=== PATIENT | female | born 2000 | race African-American/Black ===

== ENCOUNTER 2020-05-13 14:42 | Outpatient (REF) | payer MEDICAID, SELFPAY ==
[2020-05-14 11:07] LABS: CT PCR NOT DETECTED (Not Detect.); NG PCR NOT DETECTED (Not Detect.)
[2020-05-14 12:31] LABS: BV Int Neg Control Negative (Negative); BV Int Pos Control Positive (Positive)
== END 2020-05-13 14:43 | disposition home or self-care (01) ==
LOC: HO.LAB 14:42
PROVIDERS: PCP Internal Medicine; Visit Provider Advanced Practice Midwife
DX: R10.2 Pelvic and perineal pain (principal); Z20.2 Contact with and (suspected) exposure to infections with a predominantly sexual mode of transmission
CPT/HCPCS: 87480; 87491; 87510; 87591; 87660; 99214

== ENCOUNTER 2020-06-06 | Outpatient (REF) | payer MEDICAID, SELFPAY | END 2020-06-06 00:01 | LOC: CF | PROVIDERS: Visit Provider Advanced Practice Midwife | DX: R10.2 Pelvic and perineal pain (principal); E28.2 Polycystic ovarian syndrome | CPT/HCPCS: 99212 ==

== ENCOUNTER 2020-08-31 08:39 | Emergency (ER) | payer MEDICAID, SELFPAY ==
--- NOTE | ~2020-08-31 | US_ITS ---
EXAMINATION: FIRST TRIMESTER OB ULTRASOUND CLINICAL INFORMATION: Positive test. Epigastric and lower abdominal pain. COMPARISON: None TECHNIQUE: First trimester transabdominal OB ultrasound FINDINGS: The uterus measures 10.2 x 6.3 x 8 cm in dimension. There is an intrauterine gestational sac. [place]-rump length measures 2.9 cm suggesting gestational age of 9 weeks 6 days with estimated date of delivery of 03/30/2021. heart rate is 158 bpm. There is a yolk sac. The maternal ovaries are normal. The right ovary measures 2.9 x 1.5 x 2.8 cm and the left ovary measures 3 x 1.3 x 1.9 cm. There is no fluid in the maternal pelvis. US/US OB <= 14 weeks fetus IMPRESSION: Single viable intrauterine . From today's measurements, gestational age is estimated at 9 weeks 6 days with estimated date of delivery of 03/30/2021.
[2020-08-31 09:20] VITALS: BP 137/87; PULSE 94; RESP 18; TEMP 36.7; O2SAT 100; BMI 21.2
[2020-08-31 09:50] LABS: Glucose Urine UA NEG (NEG); Leukocyte Esterase Urine NEG (NEG); Nitrite Urine NEG (NEG); Urine Blood NEG (NEG); Urine Ketones 5 MG/DL (NEG); Urine Protein TRACE MG/DL (NEG-TRACE)
[2020-08-31 09:55] LABS: MANUAL DIFF FLAG NO
[2020-08-31 09:58] LABS: Basophils Percent Auto 0.4 % (0-2); Eosinophils Percent Auto 0.4 % (0-4); Hematocrit 39.6 % (37-47); Hemoglobin 13.8 g/dl (12.0-16.0); Lymphocytes Absolute Auto 1.9 X10*3/uL (1.2-4.9); Lymphocytes Percent Auto 38.7 % (20-40); Mean Corpuscular HGB Conc 34.8 g/dl (31.0-35.0); Mean Corpuscular Hemoglobin 31.4 pg (27.0-33.0); Mean Corpuscular Volume 90.2 fL (80-98); Mean Platelet Volume 10.3 fL (9.4-12.3); Monocytes Absolute Auto 0.2 X10*3/uL (0.1-1.2); Monocytes Percent Auto 3.2 % (2-11); Neutrophils Absolute Auto 2.8 X10*3/uL (2.0-8.3); Neutrophils Percent Auto 57.3 % (45-73); Platelet Count 199 X10*3/uL (160-400); Red Blood Count 4.39 X10*6/uL (4.20-5.50); Red Cell Distribution Width 13.8 % (11.0-16.0)
[2020-08-31 09:59] LABS: Color Urine YELLOW
[2020-08-31 10:00] LABS: Appearance Urine HAZY; UPreg QC Valid YES; Urine Pregnancy POSITIVE (NEGATIVE)
[2020-08-31 10:29] LABS: Alanine Aminotransferase 11 U/L (0-31); Albumin Level 4.1 g/dL (3.5-5.0); Alkaline Phosphatase 57 U/L (39-117); Anion Gap 10 (12-20); Aspartate Amino Transferase 14 U/L (5-31); Bilirubin Direct 0.2 mg/dL (0.0-0.5); Bilirubin Total 0.5 mg/dL (0.0-1.0); Blood Urea Nitrogen 11 mg/dL (9-16); Calcium 9.2 mg/dL (8.4-10.2); Carbon Dioxide 26 mmol/L (22-29); Chloride 105 mmol/L (96-108); Creatinine Clr Calc Pharmacy 110.7; Estimated Glomerular Filt Rate > 60; Glucose Random 86 mg/dL (60-115); Potassium 3.7 mmol/L (3.3-5.1); Sodium 137 mmol/L (135-145); Total Protein 6.9 g/dL (6.5-8.0)
[2020-08-31] MEDS: 0.9 % Sodium Chloride 1,000 ML 999 ML IVCONT (10:40)
[2020-08-31] MEDS: ondansetron HCL 4 MG/2 ML VIAL IVPUSH (10:53)
--- NOTE | 2020-08-31 12:33 | ED_ITS ---
HPI - Nausea/Vomiting/Diarrhea General Chief complaint: Abdominal Pain Stated complaint: VOMITING Time Seen by Provider: 08/31/20 09:26 Source: patient Mode of arrival: ambulatory Limitations: no limitations History of Present Illness HPI Narrative: 19-year-old female with a past medical history of PCOS, irregular menses, Hirsutism, elevated DHEA who has had 2 prior miscarriages in the past the last 1 was at 22 weeks approximately 2 years ago presenting to the ED with complaints of nausea vomiting and diffuse abdominal pain for the past month. Denies any fevers, chills, dizziness, chest pain, shortness of breath, palpitations, cough, sore throat, back pain, dysuria, vaginal discharge, hematuria, abnormal bleeding or any other symptom complaints or concerns at this time. Reports that she does not believe she is . MD elicited complaint: nausea, vomiting and abdominal pain Onset (ago): month(s) (One month worse today) Description of vomiting: food contents, watery and bilious Associated nausea: Yes Associated abdominal pain: Yes Location of pain: diffuse Pain consistency: constant Severity: moderate Quality: cramping Exacerbating factors: eating Relieving factors: none Associated symptoms: denies other symptoms Related Data Home Medications Medication Instructions Recorded Confirmed sertraline 25 mg tablet 25 mg PO DAILY 05/13/20 Previous Rx's Medication Instructions Recorded PNV #[id number] acid-[id number] 1 cap PO DAILY #30 cap 08/31/20 ondansetron HCl [Zofran] 4 mg PO Q8H PRN #20 tab 08/31/20 Allergies Allergy/AdvReac Type Severity Reaction Status Date / Time No Known Allergies Allergy Unverified 04/07/20 16:54 Review of Systems Review of Systems: Constitutional : No Weight loss, No Fever, No Chills, No Night Sweats, No Fatigue, NoMalaise ENT/Mouth: No ear pain, No sore throat, No Difficulty swallowing Cardiovascular : No Chest Pain, No SOB, No Dyspnea on Exertion, No Orthopnea, NoEdema, No Palpitations Respiratory : No Cough, No Sputum, No Wheezing, No Dyspnea Gastrointestinal : + Nausea, + Vomiting, No Diarrhea, + abdominal Pain, No Hematochezia, No Melena Genitourinary : No irregular bleeding, No Dysuria, No Urinary Frequency, No Hematuria,No Urinary Incontinence, No Urgency, No Flank Pain Musculoskeletal : No joint pain, No Myalgias, No Joint Swelling Skin : No Skin Lesions, No rash Neuro : No Weakness, No Numbness, No Paresthesias, No Loss of Consciousness, NoDizziness, No Headache Psych : No Social Issues, Heme/Lymph: No Bruising, No Bleeding,No Lymphadenopathy Endocrine : No Polyuria, No Polydipsia, No Temperature Intolerance Yes all other systems are reviewed and are negative Gastrointestinal: Gastrointestinal: Reports nausea PMFSH Past Medical History Attestation statement: The following information was validated with the patient. Medical History History of depression PCOS (polycystic ovarian syndrome) Social History Social History Alcohol intake: current Alcohol intake frequency: holidays/special occasions only Smoking Status: Never smoker Use of substances other than those prescribed or required for medical reasons: No Advance Directives: No Advance Directives Information Provided: No Sexual orientation: Straight/Heterosexual Gender identity: female Physical Exam Vital Signs: Vital Signs: Last Vital Signs Temp 98.0 F 08/31/20 09:20 Pulse 94 08/31/20 09:20 Resp 18 08/31/20 09:20 BP 137/87 08/31/20 09:20 Pulse Ox 100 08/31/20 09:20 Body Mass Index 21.2 vital signs have been reviewed as normal and appeared to be correct. Blood pressure normal. Heart rate normal. Respiration rate normal. Temperature normal. Oxygen saturation normal. Appearance: Alert. Oriented X3. No acute distress. Head: Normal external exam. Normocephalic. Eyes: PERRLA. EOMI. Conjunctiva and sclera normal. Eyelids normal. ENT: Pharynx normal. Uvula midline. Moist mucous membranes. No trismus noted. No drooling noted. No muffled voice noted. Neck: Normal inspection. Neck supple. FROM. No adenopathy. No meningeal signs. CVS: Normal heart rate and rhythm. Heart sound normal. No murmurs noted. Pulses normal throughout. Respiratory: No respiratory distress. Painless inspiration. Breath sounds normal. No wheezes/rales/rhonchi noted. Chest nontender. No accessory muscle usage noted or decreased air movement noted. Abdomen: Soft and nontender. Nondistended. No guarding. No rigidity. Bowel sounds normal in all 4 quadrants. No distention noted. No organomegaly noted. No visible injury noted. No rebound tenderness. Negative Rovsing sign. Negative obturator's sign. Negative psoas sign. Negative Hicks sign. Back: No CVA tenderness. Full range of motion noted. Skin: Skin warm and dry. Normal skin color. Normal skin turgor. No rashes/lesions/lacerations noted. Extremities: Extremities exhibit normal range of motion. Extremities nontender. Neuro: Oriented X 3. No motor deficit. No sensory deficit. Reflexes normal. Course Course Course Narrative: 19-year-old female with a past medical history of PCOS, irregular menses, Hirsutism, elevated DHEA who has had 2 prior miscarriages in the past the last 1 was at 22 weeks approximately 2 years ago presenting to the ED with complaints of nausea vomiting and diffuse abdominal pain for the past month. - on exam patient is alert and oriented x3. Not in acute distress. Vital signs are stable within normal limits. No signs of dehydration. Nontoxic. Abdomen is soft and nontender on exam. - UA revealed positive test there for serum quant ordered an appropriately elevated. All other labs are within normal limits. First trimester ultrasound revealed single viable intrauterine with es timated date of 9 weeks and 6 days with a delivery date of 03/30/2021 therefore printed out these results and given to the patient. She also had images from ultrasound of the fetus. Will DC home with Zofran is patient is tolerating p.o. fluids/solids after given Zofran. And referral to Dr. Bette STOVALL for further evaluation and treatment and to return if any new or worsening symptoms. Patient understands agrees the plan. MDM - Nausea/Vomiting/Diarrhea Medical Records Attestation: I reviewed the patient's medical records. Lab Data Attestation: I reviewed the patient's lab results. Result diagrams: 08/31/20 09:52 08/31/20 09:52 Labs: Lab Results 08/31/20 08/31/20 08/31/20 Range/Units 09:30 09:52 09:52 WBC 5.0 (4.8-10.8) X10*3/uL RBC 4.39 (4.20-5.50) X10*6/uL Hgb 13.8 (12.0-16.0) g/dl Hct 39.6 (37-47) % MCV 90.2 (80-98) fL MCH 31.4 (27.0-33.0) pg MCHC 34.8 (31.0-35.0) g/dl RDW 13.8 (11.0-16.0) % Plt Count 199 (160-400) X10*3/uL MPV 10.3 (9.4-12.3) fL Immature Gran % (Auto) 0.0 (0.0-0.4) % Neut % (Auto) 57.3 (45-73) % Lymph % (Auto) 38.7 (20-40) % Gibson % (Auto) 3.2 (2-11) % Eos % (Auto) 0.4 (0-4) % Baso % (Auto) 0.4 (0-2) % Lymph # (Auto) 1.9 (1.2-4.9) X10*3/uL Gibson # (Auto) 0.2 (0.1-1.2) X10*3/uL Eos # (Auto) 0.0 (0.0-0.4) X10*3/uL Baso # (Auto) 0.0 (0.0-0.2) X10*3/uL Abs Immat Gran (auto) 0.00 (0.00-0.03) X10*3/uL Absolute Neuts (auto) 2.8 (2.0-8.3) X10*3/uL Absolute Nucleated RBC 0.000 (0.0-0.012) X10*3/uL Nucleated RBC % (auto) 0.0 (0.0-0.2) /100WBC Hold Blue Top SEE NOTE Sodium (135-145) mmol/L Potassium (3.3-5.1) mmol/L Chloride (96-108) mmol/L Carbon Dioxide (22-29) mmol/L Anion Gap (12-20) BUN (9-16) mg/dL Creatinine (0.5-1.4) mg/dL Estim Creat Clear Calc Estimated GFR Random Glucose (60-115) mg/dL Calcium (8.4-10.2) mg/dL Magnesium (1.6-2.6) mg/dL Total Bilirubin (0.0-1.0) mg/dL Direct Bilirubin (0.0-0.5) mg/dL AST (5-31) U/L ALT (0-31) U/L Alkaline Phosphatase (39-117) U/L Total Protein (6.5-8.0) g/dL Albumin (3.5-5.0) g/dL Beta HCG, Quant mIU/mL Urine Color YELLOW Urine Appearance HAZY Urine pH 7.0 (5.0-8.0) Ur Specific Grandy 1.020 (1.005-1.025) Urine Protein TRACE (NEG-TRACE) MG/DL Urine Glucose (UA) NEG (NEG) MG/DL Urine Ketones 5 (NEG) MG/DL Urine Blood NEG (NEG) Urine Nitrite NEG (NEG) Ur Leukocyte Esterase NEG (NEG) Urine Test POSITIVE H (NEGATIVE) 08/31/20 Range/Units 09:52 WBC (4.8-10.8) X10*3/uL RBC (4.20-5.50) X10*6/uL Hgb (12.0-16.0) g/dl Hct (37-47) % MCV (80-98) fL MCH (27.0-33.0) pg MCHC (31.0-35.0) g/dl RDW (11.0-16.0) % Plt Count (160-400) X10*3/uL MPV (9.4-12.3) fL Immature Gran % (Auto) (0.0-0.4) % Neut % (Auto) (45-73) % Lymph % (Auto) (20-40) % Gibson % (Auto) (2-11) % Eos % (Auto) (0-4) % Baso % (Auto) (0-2) % Lymph # (Auto) (1.2-4.9) X10*3/uL Gibson # (Auto) (0.1-1.2) X10*3/uL Eos # (Auto) (0.0-0.4) X10*3/uL Baso # (Auto) (0.0-0.2) X10*3/uL Abs Immat Gran (auto) (0.00-0.03) X10*3/uL Absolute Neuts (auto) (2.0-8.3) X10*3/uL Absolute Nucleated RBC (0.0-0.012) X10*3/uL Nucleated RBC % (auto) (0.0-0.2) /100WBC Hold Blue Top Sodium 137 (135-145) mmol/L Potassium 3.7 (3.3-5.1) mmol/L Chloride 105 (96-108) mmol/L Carbon Dioxide 26 (22-29) mmol/L Anion Gap 10 L (12-20) BUN 11 (9-16) mg/dL Creatinine 0.70 (0.5-1.4) mg/dL Estim Creat Clear Calc 110.7 Estimated GFR > 60 Random Glucose 86 (60-115) mg/dL Calcium 9.2 (8.4-10.2) mg/dL Magnesium 2.0 (1.6-2.6) mg/dL Total Bilirubin 0.5 (0.0-1.0) mg/dL Direct Bilirubin 0.2 (0.0-0.5) mg/dL AST 14 (5-31) U/L ALT 11 (0-31) U/L Alkaline Phosphatase 57 (39-117) U/L Total Protein 6.9 (6.5-8.0) g/dL Albumin 4.1 (3.5-5.0) g/dL Beta HCG, Quant 322448 mIU/mL Urine Color Urine Appearance Urine pH (5.0-8.0) Ur Specific Grandy (1.005-1.025) Urine Protein (NEG-TRACE) MG/DL Urine Glucose (UA) (NEG) MG/DL Urine Ketones (NEG) MG/DL Urine Blood (NEG) Urine Nitrite (NEG) Ur Leukocyte Esterase (NEG) Urine Test (NEGATIVE) Imaging Data First trimester ultrasound: Attestation: I personally reviewed and interpreted this imaging study as follows: Radiologist's impression: FINDINGS: The uterus measures 10.2 x 6.3 x 8 cm in dimension. There is an intrauterine gestational sac. [place]-rump length measures 2.9 cm suggesting gestational age of 9 weeks 6 days with estimated date of delivery of 03/30/2021. heart rate is 158 bpm. There is a yolk sac. The maternal ovaries are normal. The right ovary measures 2.9 x 1.5 x 2.8 cm and the left ovary measures 3 x 1.3 x 1.9 cm. There is no fluid in the maternal pelvis. US/US OB <= 14 weeks fetus IMPRESSION: Single viable intrauterine . From today's measurements, gestational age is estimated at 9 weeks 6 days with estimated date of delivery of 03/30/2021. Discharge Plan Discharge Clinical Impression: Positive test, 9 weeks gestation of , Nausea and vomiting during Patient Disposition: Home, Self-Care Instructions: Nausea and Vomiting in (ED), First Trimester (ED), at 7 to 10 Weeks (ED) Prescriptions: New ondansetron HCl [Zofran] 4 mg tablet 4 mg PO Q8H PRN (Reason: nausea and vomiting) Qty: 20 RF: 0 PNV #[id number] acid-omega3 30 mg iron-10 mg iron-1 mg capsule 1 cap PO DAILY Qty: 30 RF: 0 No Action sertraline 25 mg tablet 25 mg PO DAILY RF: 0 Referrals: Ritesh Amos MD [Physician] - 2 days (Call today or tomorrow to make a follow- up appointment) Interventions: ED Discharge Assessment Last Done: 08/31/20 12:54 Discharge Date/Time: 08/31/20 12:55 Print Language: Citizen Of [place]
== END 2020-08-31 12:55 | disposition home or self-care (01) ==
PROVIDERS: Physician Assistant Medical; Emergency Provider Emergency Medicine Emergency Medical Services; PCP Internal Medicine
DX: O26.891 Other specified pregnancy related conditions, first trimester (principal); R11.2 Nausea with vomiting, unspecified; Z3A.09 9 weeks gestation of pregnancy
CPT/HCPCS: 36415; 76801; 80048; 80076; 81003; 81025; 83735; 84702; 85025; 96361; 96374; 99284; J2405

== ENCOUNTER 2020-09-09 18:39 | Emergency (ER) | payer MEDICAID, SELFPAY ==
[2020-09-09 20:53] VITALS: BP 118/81; PULSE 93; RESP 18; TEMP 37.2; O2SAT 100
== END 2020-09-09 23:06 | disposition left against medical advice (07) ==
PROVIDERS: Emergency Provider Emergency Medicine; PCP Internal Medicine
DX: O26.91 Pregnancy related conditions, unspecified, first trimester (principal); Z3A.11 11 weeks gestation of pregnancy
CPT/HCPCS: 99281; 99282

== ENCOUNTER → 2020-09-20 14:17 | Outpatient (BNVA) | payer MEDICAID, SELFPAY | PROVIDERS: PCP Internal Medicine; Visit Provider Advanced Practice Midwife | CPT/HCPCS: 99212 ==

== ENCOUNTER 2020-09-23 08:47 | Outpatient (REF) | payer MEDICAID, SELFPAY ==
--- NOTE | ~2020-09-23 | US_ITS ---
EXAMINATION: OBSTETRICAL ULTRASOUND, FIRST TRIMESTER HISTORY: 19-year-old at 13.1 weeks of gestation NT screening COMPARISON: 08/31/2020 TECHNIQUE: Real time transabdominal imaging with color and M-mode Doppler. FINDINGS: A single, live IUP CRL of 71.3 mm c/w 13.3wks is noted. Heart Rate: 160 beats per minute. Normal yolk sac seen. NT was 1.67.mm. NB Present The embryo appears sonographically wnl for this GA. Both maternal ovaries are seen and appear normal. GESTATIONAL AGE: 1. Established GA: 13.1 wks 2. GA from [facility]: 13.3 wks ESTIMATED DATE OF DELIVERY: 1. Established MIL[facility]IA: 03/30/2021 2. MILVIA from [facility]: 03/28/2021 US/US OB 1T nuc measure IMPRESSION: A single live IUP Size equals dates NT of 1.67 mm MFM Consultation: I reviewed the ultrasound findings along with significance of NT measurement. The NT of less than 3mm is generally reassuring. However, the sensitivity for T21 detection is only 60%. I reviewed the availability of serum aneuploidy screening which includes cell-free DNA and placental protein based tests. I discussed the sensitivity, false-positive rate, and other limitations associated with each test. I also reviewed the availability of invasive diagnostic tests that are associated small but definite risk of miscarriage. We also reviewed the differences between screening tests and diagnostic tests. After our discussion, she opted for the First trimester screening that is based on cell-free DNA or non-invasive testing (NIPT). The result will be faxed to your office in approximately 7 days. A follow up at 18 weeks for survey has been scheduled. Thank you very much for this referral. Total time 20 minutes. The time spent was devoted to counseling the patient about the disease and diagnosis, coordinating care including reviewing her records, pertinent lab data and studies, as well as discussing diagnostic evaluation and workup, plan therapeutic interventions and future disposition of care. This includes any additional research needed to obtain further information in formulating the plan of care of this patient. This note was generated with a voice recognition program. Please excuse any errors which may have been overlooked during my review of this note. Sometimes these errors may affect the content or meaning of a given sentence.
== END 2020-09-23 08:48 | disposition home or self-care (01) ==
LOC: HO.US 08:47
PROVIDERS: PCP Internal Medicine; Visit Provider Advanced Practice Midwife
DX: Z34.91 Encounter for supervision of normal pregnancy, unspecified, first trimester (principal); Z36.82 Encounter for antenatal screening for nuchal translucency
CPT/HCPCS: 76813

== ENCOUNTER 2020-09-29 11:06 | Outpatient (REF) | payer MEDICAID, SELFPAY ==
[2020-09-29 13:04] LABS: MANUAL DIFF FLAG NO
[2020-09-29 13:09] LABS: Basophils Percent Auto 0.4 % (0-2); Eosinophils Percent Auto 0.6 % (0-4); Hematocrit 37.2 % (37-47); Hemoglobin 12.9 g/dl (12.0-16.0); Imm Gran Abs Auto 0.01 X10*3/uL (0.00-0.03); Imm Gran Pct Auto 0.1 % (0.0-0.4); Lymphocytes Absolute Auto 2.4 X10*3/uL (1.2-4.9); Lymphocytes Percent Auto 34.6 % (20-40); Mean Corpuscular HGB Conc 34.7 g/dl (31.0-35.0); Mean Corpuscular Hemoglobin 31.5 pg (27.0-33.0); Mean Platelet Volume 10.6 fL (9.4-12.3); Monocytes Absolute Auto 0.3 X10*3/uL (0.1-1.2); Monocytes Percent Auto 3.6 % (2-11); Neutrophils Absolute Auto 4.2 X10*3/uL (2.0-8.3); Neutrophils Percent Auto 60.7 % (45-73); Platelet Count 220 X10*3/uL (160-400); Red Blood Count 4.09 X10*6/uL (4.20-5.50); Red Cell Distribution Width 13.6 % (11.0-16.0)
[2020-09-29 19:25] LABS: Amphetamine Screen Urine Not Detected (Not Detect); Barbiturates, Urine Not Detected (Not Detect); Benzodiazepines Screen Urine Not Detected (Not Detect); Cannabinoid Screen Urine POSITIVE (Not Detect); Cocaine Screen Urine Not Detected (Not Detect); Opiate Screen Urine Not Detected (Not Detect); Phencyclidine Screen Urine Not Detected (Not Detect)
[2020-09-30 04:22] LABS: HIV AB/AG Nonreactive (Nonreactive); HIV Num 1 0.07 S/CO (0.00-0.99)
[2020-09-30 04:39] LABS: HBsAGNum1 0.16 S/CO (0.00-0.99); Hepatitis B Surface Antigen Negative (Negative); ~HepC Num1 0.07 S/CO (0.00-0.79); ~Hepatitis C Antibody Nonreactive (Nonreactive)
[2020-09-30 08:50] LABS: CT PCR NOT DETECTED (Not Detect.); NG PCR NOT DETECTED (Not Detect.)
[2020-09-30 09:32] LABS: Varicella IgG Antibody <135.00 index
[2020-09-30 10:22] LABS: Rubella IgG Antibody 1.66 Index
[2020-09-30 16:06] LABS: Syphilis Screen Nonreactive (Nonreactive)
== END 2020-09-29 11:07 | disposition home or self-care (01) ==
LOC: HO.LAB 11:06
PROVIDERS: Advanced Practice Midwife; PCP Internal Medicine; Visit Provider Advanced Practice Midwife
DX: O09.292 Supervision of pregnancy with other poor reproductive or obstetric history, second trimester (principal); O99.282 Endocrine, nutritional and metabolic diseases complicating pregnancy, second trimester; E28.2 Polycystic ovarian syndrome; Z87.891 Personal history of nicotine dependence
CPT/HCPCS: 80307; 85025; 86762; 86780; 86787; 86803; 86850; 86900; 86901; 87086; 87340; 87389; 87491; 87591; 99212

== ENCOUNTER → 2020-10-27 10:36 | Outpatient (BNVA) | payer MEDICAID, SELFPAY | PROVIDERS: PCP Internal Medicine; Visit Provider Advanced Practice Midwife | DX: Z34.92 Encounter for supervision of normal pregnancy, unspecified, second trimester (principal); Z3A.18 18 weeks gestation of pregnancy | CPT/HCPCS: 81003; 99212 ==

== ENCOUNTER 2020-11-04 11:47 | Outpatient (REF) | payer MEDICAID, SELFPAY ==
--- NOTE | ~2020-11-04 | US_ITS ---
EXAMINATION: US OBSTETRICAL CLINICAL INFORMATION: 20-year-old at 19.1 weeks of gestation Screening anomaly COMPARISON: 09/23/2020 TECHNIQUE: Real-time transabdominal ultrasound was performed using C1-5 megahertz transducer. FINDINGS: A single, active, fetus is seen in cephalic presentation. The placenta is left lateral without previa, and the amniotic fluid volume is wnl. MEASUREMENTS: 1. Biparietal Diameter: 4.4 cm; 19.2 wks 2. Occipital Frontal Diameter: 5.7 cm 3. Head Circumference: 16.2 cm; 19.0 wks 4. Abdominal Circumference: 13.7 cm; 19.1 wks 5. Femur Length: 2.8 cm; 18.4 wks 6. Humerus Length: 2.7 cm; 18.5 wks 7. Tibia Length: 2.5 cm; 18.6 wks 8. Ulna Length: 2.5 cm; 19.0 wks 9. Lateral ventricle: 0.74 cm 10. Cerebellum: 1.91 cm; 19.5 wks 11. Cisterna Magna: 0.33 cm 12. Nuchal Fold: 3.8 mm 13. Heart Rate: 136 beats per minute Rt ovary: normal Lt ovary: Unable to visualize Cervical length 3.9 cm on T/A. GESTATIONAL AGE: 1. Established GA: 19.1 wks 2. GA from [facility]: 19.0 wks ESTIMATED DATE OF DELIVERY: 1. Established MILVIA: 03/30/2021 2. MILVIA from [facility]: 03/31/2021 ANATOMY: The visualized anatomy includes but not limited to: 1. Cranium: Normal 2. Intracranial anatomy: cavum septum pellucidi, lateral ventricles, choroid plexus, cerebellum, posterior fossa, third and fourth ventricles. 3. face: orbits, lip/palate, profile, nasal bone 4. Heart: four-chamber view of the heart, ventricular septum, foramen ovale, pulmonary vein, left and right outflow tracts, three-vessel view, 3 vessel trachea view, aortic and ductal arches, situs.. 5. Diaphragm: Normal 6. Abdominal wall: Normal 7. Cord Insertion: Normal 8. Spine: Cervical, thoracic, lumbar, sacral. 9. Stomach: Normal size and shape 10. Right Kidney: Normal 11. Left Kidney: Normal 12. 3 vessel cord: Normal 13. Upper extremity: Open hands, fifth digit. 14. Lower extremity: Tibia, fibula, bilateral feet. 15. Bladder: Normal 16. Genitalia: Male, patient not aware US/US OB /maternal detail IMPRESSION: 1. Single, living, intrauterine with appropriate biometry. 2. Normal survey DISCUSSION: I reviewed today's ultrasound findings. We discussed the limitations of ultrasound in diagnosing aneuploidy and other congenital abnormalities. I reviewed the differences between screening test and diagnostic test. Amniocentesis was discussed and declined. She was informed that the baseline incidence of congenital abnormalities is approximately 3-5%. Not all these conditions are diagnosable in utero. RECOMMENDATIONS: Follow-up when necessary. Thank you for allowing me to participate in her care. Total time 20 minutes. The time spent was devoted to counseling the patient about the disease and diagnosis, coordinating care including reviewing her records, pertinent lab data and studies, as well as discussing diagnostic evaluation and workup, plan therapeutic interventions and future disposition of care. This includes any additional research needed to obtain further information in formulating the plan of care of this patient. This note was generated with a voice recognition program. Please excuse any errors which may have been overlooked during my review of this note. Sometimes these errors may affect the content or meaning of a given sentence.
== END 2020-11-04 11:48 | disposition home or self-care (01) ==
LOC: HO.US 11:47
PROVIDERS: Visit Provider Advanced Practice Midwife
DX: Z36.3 Encounter for antenatal screening for malformations (principal); O09.292 Supervision of pregnancy with other poor reproductive or obstetric history, second trimester; O26.892 Other specified pregnancy related conditions, second trimester; E28.2 Polycystic ovarian syndrome
CPT/HCPCS: 76811

== ENCOUNTER → 2020-11-24 08:12 | Outpatient (BNVA) | payer MEDICAID, SELFPAY | PROVIDERS: PCP Internal Medicine; Visit Provider Advanced Practice Midwife | DX: O36.8390 Maternal care for abnormalities of the fetal heart rate or rhythm, unspecified trimester, not applicable or unspecified (principal); Z3A.22 22 weeks gestation of pregnancy | CPT/HCPCS: 81003; 99212 ==

== ENCOUNTER 2020-11-25 09:11 | Outpatient (REF) | payer MEDICAID, SELFPAY ==
--- NOTE | ~2020-11-25 | US_ITS ---
EXAMINATION: OBSTETRICAL ULTRASOUND, Follow up HISTORY: 20-year-old at the 22.1 weeks of gestation Size date discrepancy arrhythmia History of stillbirth COMPARISON: 11/04/2020 TECHNIQUE: Real time transabdominal imaging with color and M-mode Doppler. PRESENTATION: Vertex PLACENTA LOCATION: Anterior, lateral without previa AMNIOTIC FLUID: Normal MEASUREMENTS: 1. Biparietal Diameter: 5.6 cm; 23.2 wks 2. Head Circumference: 21.1 cm; 23.1 wks 3. Abdominal Circumference: 17.3 cm; 22.2 wks 4. Femur Length: 3.8 cm; 22.1 wks 5. Heart Rate: 143 beats per minute WEIGHT: EFW: 491 grams (1 lbs 1 oz) -- 51 %. GESTATIONAL AGE: 1. Established GA: 22.1 wks 2. GA from [facility]: 22.5 wks ESTIMATED DATE OF DELIVERY: 1. Established MILVIA: 03/30/2021 2. MILVIA from [facility]: 03/26/2021 Four-chamber view of the heart is within normal limits. No evidence of ascites, pleural effusion or pericardial effusion. M-mode evaluation demonstrated premature atrial contractions. US/US OB follow up IMPRESSION: 1. A single active fetus is seen in vertex presentation 2. Size equals dates 3. Premature atrial contraction 4. No evidence of hydrops I reassured the patient that the premature atrial contractions is a common, benign arrhythmia and will resolve spontaneously. There is rarely associated with structural cardiac defect or functional abnormality. Majority of the cases will resolve before delivery. She denies a excessive caffeine intake or medications other than vitamins. No further follow-up is been scheduled at this time. Thank you very much for this referral. Total time 20 minutes. The time spent was devoted to counseling the patient about the disease and diagnosis, coordinating care including reviewing her records, pertinent lab data and studies, as well as discussing diagnostic evaluation and workup, plan therapeutic interventions and future disposition of care. This includes any additional research needed to obtain further information in formulating the plan of care of this patient. This note was generated with a voice recognition program. Please excuse any errors which may have been overlooked during my review of this note. Sometimes these errors may affect the content or meaning of a given sentence.
== END 2020-11-25 09:12 | disposition home or self-care (01) ==
LOC: HO.US 09:11
PROVIDERS: Visit Provider Advanced Practice Midwife
DX: O09.292 Supervision of pregnancy with other poor reproductive or obstetric history, second trimester (principal); O36.8390 Maternal care for abnormalities of the fetal heart rate or rhythm, unspecified trimester, not applicable or unspecified; O26.842 Uterine size-date discrepancy, second trimester; Z3A.22 22 weeks gestation of pregnancy
CPT/HCPCS: 76816

== ENCOUNTER → 2020-12-22 08:33 | Outpatient (BNVA) | payer MEDICAID, SELFPAY | PROVIDERS: PCP Internal Medicine; Visit Provider Advanced Practice Midwife | DX: Z34.92 Encounter for supervision of normal pregnancy, unspecified, second trimester (principal); Z3A.26 26 weeks gestation of pregnancy | CPT/HCPCS: 81003; 99212 ==

== ENCOUNTER 2021-01-19 09:09 | Outpatient (REF) | payer MEDICAID, SELFPAY ==
[2021-01-19 12:23] LABS: Hematocrit 32.2 % (37-47); Hemoglobin 11.1 g/dl (12.0-16.0); Mean Corpuscular HGB Conc 34.5 g/dl (31.0-35.0); Mean Corpuscular Hemoglobin 32.6 pg (27.0-33.0); Mean Corpuscular Volume 94.4 fL (80-98); Mean Platelet Volume 10.1 fL (9.4-12.3); Platelet Count 187 X10*3/uL (160-400); Red Blood Count 3.41 X10*6/uL (4.20-5.50); Red Cell Distribution Width 12.7 % (11.0-16.0); White Blood Count 7.1 X10*3/uL (4.8-10.8)
[2021-01-19 12:42] LABS: Glucose 1 Hour PP 50gm Dose 116 mg/dL (60-140)
[2021-01-20 03:59] LABS: Syphilis Screen Nonreactive (Nonreactive)
== END 2021-01-19 09:10 | disposition home or self-care (01) ==
LOC: HO.LAB 09:09
PROVIDERS: PCP Internal Medicine; Visit Provider Advanced Practice Midwife
DX: O99.333 Smoking (tobacco) complicating pregnancy, third trimester (principal); O26.893 Other specified pregnancy related conditions, third trimester; O36.5930 Maternal care for other known or suspected poor fetal growth, third trimester, not applicable or unspecified; F17.210 Nicotine dependence, cigarettes, uncomplicated; M54.9 Dorsalgia, unspecified; Z3A.30 30 weeks gestation of pregnancy; Z23 Encounter for immunization; Z13.31 Encounter for screening for depression; Z20.2 Contact with and (suspected) exposure to infections with a predominantly sexual mode of transmission
CPT/HCPCS: 36415; 81003; 85027; 86780; 90471; 90715; 99212

== ENCOUNTER 2021-01-27 10:38 | Outpatient (REF) | payer MEDICAID, SELFPAY ==
--- NOTE | ~2021-01-27 | US_ITS ---
EXAMINATION: OBSTETRICAL ULTRASOUND, Follow up HISTORY: 20-year-old at 31.1 weeks of gestation Size date discrepancy History of stillbirth COMPARISON: 11/25/2020 TECHNIQUE: Real time transabdominal imaging with color and M-mode Doppler. PRESENTATION: Vertex PLACENTA LOCATION: Left lateral, without previa AMNIOTIC FLUID: SAIDA 15.5 cm MEASUREMENTS: 1. Biparietal Diameter: 8.0 cm; 32.2 wks 2. Head Circumference: 30.4 cm; 33.6 wks 3. Abdominal Circumference: 26.1 cm; 30.2 wks 4. Femur Length: 5.7 cm; 30.0 wks 5. Heart Rate: 133 beats per minute WEIGHT: EFW: 1611 grams (3 lbs 9 oz) -- 23 %. BIOPHYSICAL PROFILE: Motion: 2 Tone: 2 Breathin Amniotic Fluid: 2 Total score: 8/8 GESTATIONAL AGE: 1. Established GA: 31.1 wks 2. GA from A: 31.5 wks ESTIMATED DATE OF DELIVERY: 1. Established MILVIA: 03/30/2021 2. MILVIA from [facility]: 03/26/2021 US/US OB follow up IMPRESSION: 1. A single active fetus is in vertex presentation 2. Size equals dates 3. Reassuring biophysical profile Thank you very much for this referral. This note was generated with a voice recognition program. Please excuse any errors which may have been overlooked during my review of this note. Sometimes these errors may affect the content or meaning of a given sentence.
== END 2021-01-27 10:39 | disposition home or self-care (01) ==
LOC: HO.US 10:38
PROVIDERS: PCP Internal Medicine; Visit Provider Advanced Practice Midwife
DX: O36.5930 Maternal care for other known or suspected poor fetal growth, third trimester, not applicable or unspecified (principal)
CPT/HCPCS: 76816

== ENCOUNTER → 2021-02-03 09:01 | Outpatient (BNVA) | payer MEDICAID, SELFPAY | PROVIDERS: Visit Provider Advanced Practice Midwife | DX: Z34.93 Encounter for supervision of normal pregnancy, unspecified, third trimester (principal); Z3A.32 32 weeks gestation of pregnancy | CPT/HCPCS: 81003; 99212 ==

== ENCOUNTER 2021-06-12 07:28 | Emergency (ER) | payer MEDICAID, SELFPAY ==
--- NOTE | ~2021-06-12 | XR_ITS ---
EXAMINATION: XR CHEST CLINICAL INFORMATION: Chest and abdominal pain COMPARISON: None TECHNIQUE: 2 views of the chest were obtained. FINDINGS: The cardiac and mediastinal contours are normal. The lungs are clear. There is no pleural effusion or pneumothorax. There is mild curvature of the lower thoracic and upper lumbar spine to the left. Bony structures are otherwise unremarkable. XR/XR chest 2V IMPRESSION: No evidence for acute disease in the chest.
[2021-06-12 08:03] VITALS: BP 131/92; PULSE 94; RESP 16; TEMP 36.8; O2SAT 100; BMI 24.5
[2021-06-12 08:11] LABS: Appearance Urine HAZY; Color Urine YELLOW; Glucose Urine UA NEG (NEG); Leukocyte Esterase Urine TRACE (NEG); Nitrite Urine NEG (NEG); Specific Gravity - Urine 1.015 (1.005-1.025); UACC Culture Trigger YES; Urine Blood NEG (NEG); Urine Ketones NEG (NEG); Urine Protein NEG (NEG-TRACE)
[2021-06-12 08:12] LABS: Urine Pregnancy NEGATIVE (NEGATIVE)
[2021-06-12 08:13] LABS: UPreg QC Valid YES
[2021-06-12 08:26] LABS: Bacteria Urine TRACE /LPF; RBC Urine 0-2 /HPF (0); Squamous Epithelial Cell Urine 3+ /LPF; UACC CULT YES
--- NOTE | 2021-06-12 08:28 | ED_ITS ---
HPI - Abdominal Pain General Chief Complaint: Abdominal Pain Stated Complaint: chest pain/abd pain Time Seen by Provider: 06/12/21 08:28 Source: patient History of Present Illness HPI narrative: upper abdominal pain going into the chest. 2 months uncomplicated vaginal delivery. since the patient has had a lot of chest and abdominal pain. MD elicited complaint: abdominal pain Onset (ago): month(s) Pain Consistency: intermittent Location: chest and epigastric Exacerbating factors: other (lying down and sitting up) Related Data Previous Rx's Medication Instructions Recorded ondansetron HCl 4 mg tablet 4 mg PO Q8H PRN #20 tab 08/31/20 (Zofran) vitamin#30 30 mg iron-10 1 cap PO DAILY #30 cap 08/31/20 mg iron-folic acid 1 mg-omg3 capsule ferrous sulfate 325 mg (65 mg 325 mg PO DAILY #30 tab 01/19/21 iron) tablet pantoprazole 40 mg tablet,delayed 40 mg PO DAILY #20 tab 06/12/21 release (Protonix) Allergies Allergy/AdvReac Type Severity Reaction Status Date / Time No Known Allergies Allergy Verified 02/03/21 09:47 Review of Systems Constitutional: Reports no additional constitutional complaints Eyes: Reports no additional eye complaints Denies dizziness Cardiovascular: Reports no additional cardiovascular complaints Respiratory: Reports as per HPI Gastrointestinal: Reports no additional gastrointestinal complaints Genitourinary: Reports no additional female genitourinary complaints Musculoskeletal: Reports no additional musculoskeletal complaints Skin/Breast: Denies rash Reports system reviewed and no additional complaints, except as documented, D enies dizziness and Denies Sensory deficit (Neuro) Psychiatric: Denies anxiety Physical Exam Vital Signs: Vital Signs: Last Vital Signs Temp 98.3 F 06/12/21 08:03 Pulse 94 06/12/21 08:03 Resp 16 06/12/21 08:03 BP 131/92 H 06/12/21 08:03 Pulse Ox 100 06/12/21 08:03 Body Mass Index 24.5 Const: General: healthy appearing Nutritional Appearance: average body habitus Orientation/consciousness: oriented to person and patient oriented x3 Limitations: no limitations HENMT: Head: Yes normal to inspection Ears: external ears normal General nose exam: Normal external nose present Mouth: Normal oral and palatal mucosa present and oropharynx normal Throat: Yes posterior oropharynx normal Eyes: General: appearance normal, both eyes and all related structures Neck: Other: supple Neck: Yes normal visual inspection Chest: Chest palpation & inspection: normal inspection of the chest Resp: Auscultation: clear to auscultation bilaterally Cardio: Jugular venous distension: no JVD Rate: regular rate Rhythm: regular rhythm Heart sounds: S1 normal heart sound present and S2 normal heart sound present GI: Inspection: Yes normal to inspection Palpation (GI): Soft to palpation, nontender and No hepatosplenomegaly present Auscultation: normal bowel sounds : General: Yes no CVA tenderness Back/Spine/Pelvis: Back: no CVA tenderness Skin: General skin exam: no rashes or lesions noted Neuro: General: oriented to person and patient oriented x3 Cranial nerves: Yes CN's II-XII intact bilaterally Motor exam (neuro): 5/5 motor strength present throughout Sensory Exam: No Sensory deficit (Neuro) Extrem: General: Yes normal to inspection Psych: Appearance: grossly normal Course Reevaluation(s) Reevaluation #1: Physical exam relatively normal, labs negative, LFTs normal, UA and Upreg negative will start protonix for dyspepsia Time: 10:26 MDM - Abdominal Pain Lab Data Result diagrams: 06/12/21 09:09 06/12/21 09:09 Labs: Lab Results 06/12/21 06/12/21 06/12/21 Range/Units 08:01 08:01 09:09 WBC 3.6 L (4.8-10.8) X10*3/uL RBC 4.21 (4.20-5.50) X10*6/uL Hgb 13.1 (12.0-16.0) g/dl Hct 38.7 (37.0-47.0) % MCV 91.9 (80.0-98.0) fL MCH 31.1 (27.0-33.0) pg MCHC 33.9 (31.0-35.0) g/dl RDW 12.6 (11.0-16.0) % Plt Count 186 (160-400) X10*3/uL MPV 10.8 (9.4-12.3) fL Immature Gran % (Auto) 0.0 (0.0-0.4) % Neut % (Auto) 35.3 L (45-73) % Lymph % (Auto) 56.6 H (20-40) % [place] % (Auto) 6.0 (2-11) % Eos % (Auto) 1.6 (0-4) % Baso % (Auto) 0.5 (0-2) % Lymph # (Auto) 2.1 (1.2-4.9) X10*3/uL [place] # (Auto) 0.2 (0.1-1.2) X10*3/uL Eos # (Auto) 0.1 (0.0-0.4) X10*3/uL Baso # (Auto) 0.0 (0.0-0.2) X10*3/uL Abs Immat Gran (auto) 0.00 (0.00-0.03) X10*3/uL Absolute Neuts (auto) 1.3 L (2.0-8.3) x10*3/uL Absolute Nucleated RBC 0.000 (0.0-0.012) X10*3/uL Nucleated RBC % (auto) 0.0 (0.0-0.2) /100WBC Sodium (135-145) mmol/L Potassium (3.3-5.1) mmol/L Chloride (96-108) mmol/L Carbon Dioxide (22-29) mmol/L Anion Gap (12-20) BUN (9-16) mg/dL Creatinine (0.5-1.4) mg/dL Estim Creat Clear Calc Estimated GFR Random Glucose (60-115) mg/dL Calcium (8.4-10.2) mg/dL Total Bilirubin (0.0-1.0) mg/dL Direct Bilirubin (0.0-0.5) mg/dL AST (5-31) U/L ALT (0-31) U/L Alkaline Phosphatase (39-117) U/L Total Protein (6.5-8.0) g/dL Albumin (3.5-5.0) g/dL Lipase (8-78) U/L Urine Color YELLOW Urine Appearance HAZY Urine pH 6.0 (5.0-8.0) Ur Specific [place] 1.015 (1.005-1.025) Urine Protein NEG (NEG-TRACE) MG/DL Urine Glucose (UA) NEG (NEG) MG/DL Urine Ketones NEG (NEG) MG/DL Urine Blood NEG (NEG) Urine Nitrite NEG (NEG) Ur Leukocyte Esterase TRACE H (NEG) Urine RBC 0-2 (0) /HPF Urine WBC 1-4 (0-4) /HPF Ur Squamous Epith Cells 3+ /LPF Urine Bacteria TRACE /LPF Urine Test NEGATIVE (NEGATIVE) 06/12/21 Range/Units 09:09 WBC (4.8-10.8) X10*3/uL RBC (4.20-5.50) X10*6/uL Hgb (12.0-16.0) g/dl Hct (37.0-47.0) % MCV (80.0-98.0) fL MCH (27.0-33.0) pg MCHC (31.0-35.0) g/dl RDW (11.0-16.0) % Plt Count (160-400) X10*3/uL MPV (9.4-12.3) fL Immature Gran % (Auto) (0.0-0.4) % Neut % (Auto) (45-73) % Lymph % (Auto) (20-40) % [place] % (Auto) (2-11) % Eos % (Auto) (0-4) % Baso % (Auto) (0-2) % Lymph # (Auto) (1.2-4.9) X10*3/uL [place] # (Auto) (0.1-1.2) X10*3/uL Eos # (Auto) (0.0-0.4) X10*3/uL Baso # (Auto) (0.0-0.2) X10*3/uL Abs Immat Gran (auto) (0.00-0.03) X10*3/uL Absolute Neuts (auto) (2.0-8.3) x10*3/uL Absolute Nucleated RBC (0.0-0.012) X10*3/uL Nucleated RBC % (auto) (0.0-0.2) /100WBC Sodium 139 (135-145) mmol/L Potassium 4.4 (3.3-5.1) mmol/L Chloride 107 (96-108) mmol/L Carbon Dioxide 26 (22-29) mmol/L Anion Gap 10 L (12-20) BUN 12 (9-16) mg/dL Creatinine 0.84 (0.5-1.4) mg/dL Estim Creat Clear Calc 91.5 Estimated GFR > 60 Random Glucose 87 (60-115) mg/dL Calcium 9.7 (8.4-10.2) mg/dL Total Bilirubin 0.6 (0.0-1.0) mg/dL Direct Bilirubin 0.2 (0.0-0.5) mg/dL AST 31 D (5-31) U/L ALT 38 H (0-31) U/L Alkaline Phosphatase 76 D (39-117) U/L Total Protein 6.6 (6.5-8.0) g/dL Albumin 4.1 (3.5-5.0) g/dL Lipase 27 (8-78) U/L Urine Color Urine Appearance Urine pH (5.0-8.0) Ur Specific [place] (1.005-1.025) Urine Protein (NEG-TRACE) MG/DL Urine Glucose (UA) (NEG) MG/DL Urine Ketones (NEG) MG/DL Urine Blood (NEG) Urine Nitrite (NEG) Ur Leukocyte Esterase (NEG) Urine RBC (0) /HPF Urine WBC (0-4) /HPF Ur Squamous Epith Cells /LPF Urine Bacteria /LPF Urine Test (NEGATIVE) Discharge Plan Discharge Clinical Impression: Gastritis Qualifiers: Gastritis type: unspecified gastritis Chronicity: unspecified Gastritis bleeding: without bleeding Qualified Code(s): K29.70 - Gastritis, unspecified, without bleeding Patient Disposition: Home, Self-Care Instructions: Gastritis (ED) Prescriptions: New pantoprazole [Protonix] 40 mg tablet,delayed release (DR/EC) 40 mg PO DAILY Qty: 20 RF: 0 No Action ferrous sulfate 325 mg (65 mg iron) tablet 325 mg PO DAILY Qty: 30 RF: 5 ondansetron HCl [Zofran] 4 mg tablet 4 mg PO Q8H PRN (Reason: nausea and vomiting) Qty: 20 RF: 0 PNV #[id number] 30 mg iron-10 mg iron-1 mg capsule 1 cap PO DAILY Qty: 30 RF: 0 Referrals: Lacie Gimenez MD [Primary Care Provider] - 1 week [facility] Past Medical History Medical History History of depression History of stillbirth in currently patient PCOS (polycystic ovarian syndrome) Social History Social History Household Members: Family Alcohol intake: current Alcohol intake frequency: holidays/special occasions only Cigarettes Per Day: 1 Years Smoked: 1 Trauma History: no Advance Directives: No Advance Directives Information Provided: No Sexual orientation: Straight/Heterosexual Gender identity: Female
[2021-06-12] MEDS: Famotidine 20 MG TABLET PO (09:06)
[2021-06-12 09:15] LABS: MANUAL DIFF FLAG NO
[2021-06-12 09:18] LABS: Basophils Percent Auto 0.5 % (0-2); Eosinophils Absolute Auto 0.1 X10*3/uL (0.0-0.4); Eosinophils Percent Auto 1.6 % (0-4); Hematocrit 38.7 % (37.0-47.0); Hemoglobin 13.1 g/dl (12.0-16.0); Lymphocytes Absolute Auto 2.1 X10*3/uL (1.2-4.9); Lymphocytes Percent Auto 56.6 % (20-40); Mean Corpuscular HGB Conc 33.9 g/dl (31.0-35.0); Mean Corpuscular Hemoglobin 31.1 pg (27.0-33.0); Mean Corpuscular Volume 91.9 fL (80.0-98.0); Mean Platelet Volume 10.8 fL (9.4-12.3); Monocytes Absolute Auto 0.2 X10*3/uL (0.1-1.2); Neutrophils Absolute Auto 1.3 x10*3/uL (2.0-8.3); Neutrophils Percent Auto 35.3 % (45-73); Platelet Count 186 X10*3/uL (160-400); Red Blood Count 4.21 X10*6/uL (4.20-5.50); Red Cell Distribution Width 12.6 % (11.0-16.0); White Blood Count 3.6 X10*3/uL (4.8-10.8)
[2021-06-12 09:47] LABS: Alanine Aminotransferase 38 U/L (0-31); Albumin Level 4.1 g/dL (3.5-5.0); Alkaline Phosphatase 76 U/L (39-117); Anion Gap 10 (12-20); Aspartate Amino Transferase 31 U/L (5-31); Bilirubin Direct 0.2 mg/dL (0.0-0.5); Bilirubin Total 0.6 mg/dL (0.0-1.0); Blood Urea Nitrogen 12 mg/dL (9-16); Calcium 9.7 mg/dL (8.4-10.2); Carbon Dioxide 26 mmol/L (22-29); Chloride 107 mmol/L (96-108); Creatinine Clr Calc Pharmacy 91.5; Estimated Glomerular Filt Rate > 60; Glucose Random 87 mg/dL (60-115); Lipase 27 U/L (8-78); Potassium 4.4 mmol/L (3.3-5.1); Sodium 139 mmol/L (135-145); Total Protein 6.6 g/dL (6.5-8.0)
== END 2021-06-12 10:49 | disposition home or self-care (01) ==
PROVIDERS: Emergency Provider Emergency Medicine; PCP Internal Medicine
DX: K29.70 Gastritis, unspecified, without bleeding (principal); R10.13 Epigastric pain
CPT/HCPCS: 36415; 71046; 80048; 80076; 81001; 81025; 83690; 85025; 87086; 99283; 99284

== ENCOUNTER 2021-08-30 18:35 | Emergency (ER) | payer MEDICAID, SELFPAY ==
[2021-08-30 20:04] VITALS: BP 147/89; PULSE 128; RESP 20; TEMP 38.6; O2SAT 98; BMI 24.0
[2021-08-30 20:26] LABS: Appearance Urine HAZY; Color Urine YELLOW; Glucose Urine UA NEG (NEG); Leukocyte Esterase Urine 1+ (NEG); Nitrite Urine NEG (NEG); PH 6.5 (5.0-8.0); Specific Gravity - Urine 1.025 (1.005-1.025); UACC Culture Trigger YES; Urine Blood NEG (NEG); Urine Ketones 40 MG/DL (NEG); Urine Protein TRACE MG/DL (NEG-TRACE)
[2021-08-30 20:28] LABS: UPreg QC Valid YES; Urine Pregnancy POSITIVE (NEGATIVE)
[2021-08-30 20:38] LABS: Mucus Urine 2+ /LPF; Squamous Epithelial Cell Urine 2+ /LPF
[2021-08-30 20:40] LABS: COVID-19 Test Negative (Negative); IDNOW Serial# 08D9AD1C
[2021-08-30 20:42] LABS: Amorphous Sediment Urine 1+ /LPF
[2021-08-30 20:43] LABS: RBC Urine 0-2 /HPF (0)
[2021-08-30 20:46] LABS: Bacteria Urine 1+ /LPF
--- NOTE | 2021-08-30 21:21 | ECG_ITS ---
Test Reason : GENERAL Blood Pressure : / mmHG Vent. Rate : 125 BPM Atrial Rate : 125 BPM P-R Int : 124 ms QRS Dur : 074 ms QT Int : 292 ms P-R-T Axes : 063 065 021 degrees QTc Int : 421 ms Sinus tachycardia Otherwise normal ECG When compared to the previous EKG of No significant changes seen Referred By: Lindsey Morales Electronically Signed By:Willie Salvador
--- NOTE | 2021-08-30 21:21 | ED.GENADULT ---
HPI - General Adult General Chief complaint: General Medical Stated complaint: body aches, chest pains Time Seen by Provider: 08/30/21 21:20 Source: patient Mode of arrival: ambulatory Limitations: no limitations History of Present Illness HPI narrative: 20-year-old female A1 pmhx pcos presenting to the emergency department with complaints of body aches, productive cough, malaise, subjective fever/chills and breast tenderness x1 week progressively worsening. Patient tells me that she feels like her chest is congested and she is having slight pressure to her chest. She tells me she is coughing up thin white clear sputum. She also reports rining in the right ear. She reports sudden onset of body aches. She also reports breast tenderness that has been worsening over the past week. She does not think that she is . Denies drugs, alcohol and tobacco use. She denies shortness of breath, nausea, vomiting, abdominal pain, vaginal bleeding, weakness, headache, dizziness, sore throat, rhinorrhea. Patient is not vaccinated against COVID. Sexually active without protection no concern for STD. LMP 05/22/2021, reports irregular periods. Onset (ago): week(s) (1) Location: chest Radiation: non-radiation Severity: mild Pain Consistency: constant Relieving factors: none Exacerbating factors: none Associated symptoms: denies other symptoms Treatments prior to arrival: none Related Data Previous Rx's Medication Instructions Recorded ondansetron HCl 4 mg tablet 4 mg PO Q8H PRN #20 tab 08/31/20 (Zofran) vitamin#30 30 mg iron-10 1 cap PO DAILY #30 cap 08/31/20 mg iron-folic acid 1 mg-omg3 capsule ferrous sulfate 325 mg (65 mg 325 mg PO DAILY #30 tab 01/19/21 iron) tablet pantoprazole 40 mg tablet,delayed 40 mg PO DAILY #20 tab 06/12/21 release (Protonix) vitamin 1 tab PO DAILY #30 tab 08/31/21 no.76-iron,carbonyl 29 mg iron-folic acid 1 mg tablet (PNV 29-1) Allergies Allergy/AdvReac Type Severity Reaction Status Date / Time No Known Allergies Allergy Verified 02/03/21 09:47 Review of Systems Review of Systems: Constitutional : positive Fever, positive Chills, positive fatigue, positive Malaise ENT/Mouth : No sore throat, No runny nose Eyes: No Discharge Cardiovascular : No Chest Pain, No SOB Respiratory : positive Cough, positive Sputum Gastrointestinal : No Nausea, No Vomiting, No Diarrhea Genitourinary : No Dysuria, No Urinary Frequency Musculoskeletal : positive Myalgia Skin : No rash Neuro : No Headache Yes all other systems are reviewed and are negative [facility] Past Medical History Attestation statement: The following information was validated with the patient. Source: old records reviewed and nursing notes reviewed Medical History History of depression History of stillbirth in currently patient PCOS (polycystic ovarian syndrome) Social History Social History Household Members: Family Alcohol intake: never Patient Tobacco Use Status: Never used Tobacco Cigarettes Per Day: 1 Years Smoked: 1 Trauma History: no Advance Directives: No Sexual orientation: Straight/Heterosexual Gender identity: Female Physical Exam Vital Signs: Vital Signs: Last Vital Signs Temp 99.5 F 08/31/21 00:09 Pulse 110 H 08/31/21 00:09 Resp 20 08/31/21 00:09 BP 126/74 08/31/21 00:09 Pulse Ox 97 08/31/21 00:09 BMI result Body Mass Index 24.0 Patient febrile and tachycardic Appearance: Alert.? Oriented X3.? No acute distress.? Head: Normocephalic, atraumatic, no step-offs or deformities Eyes: Pupils equal, round and reactive to light.? ENT: Pharynx normal.?B/l tm and ear canals normal. Neck: Normal inspection.? Neck supple.? CVS: Normal heart rate and rhythm.? Pulses normal.? Respiratory: No respiratory distress.? Breath sounds normal.? Abdomen: Soft and nontender.? Skin: Skin warm and dry.? Normal skin color.? Normal skin turgor.? Extremities: No lower extremity edema.? No calf ttp. 5/5 strength to bilateral upper and lower extremities Back: No midline tenderness, no C-spine tenderness, full range of motion, no CVA tenderness bilaterally Neuro: Oriented X 3.? No motor deficit.? No sensory deficit. Course Reevaluation(s) Reevaluation #1: Patient is noted to be , she tells me this is not a planned . Patient has leukopenia 4.1 however it appears as though this is around patient's baseline. No acute electrolyte abnormalities, lactic acid 1.5. Troponin less than 3.5, EKG sinus tachycardia no ischemia. Unlikely that this is ACS. HCG 244, likely patient is 4-5 weeks . I have ordered a transvaginal ultrasound. Patient's urine with 1+ leukocytes however this appears to be a contaminated sample as she has 2+ epithelial cells unlikely that this is a UTI. Rapid flu pending. Time: 22:42 Reevaluation #2: Patient is noted to be positive for flu A. Likely why patient is experiencing the symptoms. At this time patient is not having severe abdominal pain, vaginal bleeding for this reason there is no need for an emergent ultrasound of the abdomen. Patient's history and physical examination consistent with influenza. Low suspicion for pulmonary embolism or pneumonia as lungs were clear on auscultation. I will provide patient with information to follow-up with OBGYN. I have given her strict return precautions and have outlined them on her discharge. I will also start patient on vitamins. Time: 00:23 Medical Decision Making [facility] Narrative Medical decision making narrative: 2121 20-year-old female A1 presents the emergency department with upper respiratory symptoms x1 week worsening. Physical examination benign. No calf tenderness to palpation bilaterally. No abdominal pain. Vital signs are stable History and physical examination not consistent with pulmonary embolism, no calf tenderness to palpation, no shortness of breath, no hypoxia. Patient is febrile however I suspect a viral infection. Plan at this time is to obtain a COVID swab, basic labs, EKG, troponin, blood cultures, lactic acid, urine, urine , flu. Medical Records Medical records reviewed: Yes I reviewed the patient's medical records. Lab Data Lab results reviewed: Yes I reviewed the patient's lab results. Result diagrams: 08/30/21 21:57 08/30/21 21:57 Labs: Lab Results 08/30/21 08/30/21 08/30/21 Range/Units 20:13 20:18 20:18 WBC (4.8-10.8) X10*3/uL RBC (4.20-5.50) X10*6/uL Hgb (12.0-16.0) g/dl Hct (37.0-47.0) % MCV (80.0-98.0) fL MCH (27.0-33.0) pg MCHC (31.0-35.0) g/dl RDW (11.0-16.0) % Plt Count (160-400) X10*3/uL MPV (9.4-12.3) fL Immature Gran % (Auto) (0.0-0.4) % Neut % (Auto) (45-73) % Lymph % (Auto) (20-40) % [place] % (Auto) (2-11) % Eos % (Auto) (0-4) % Baso % (Auto) (0-2) % Lymph # (Auto) (1.2-4.9) X10*3/uL [place] # (Auto) (0.1-1.2) X10*3/uL Eos # (Auto) (0.0-0.4) X10*3/uL Baso # (Auto) (0.0-0.2) X10*3/uL Abs Immat Gran (auto) (0.00-0.03) X10*3/uL Absolute Neuts (auto) (2.0-8.3) x10*3/uL Absolute Nucleated RBC (0.0-0.012) X10*3/uL Nucleated RBC % (auto) (0.0-0.2) /100WBC Sodium (135-145) mmol/L Potassium (3.3-5.1) mmol/L Chloride (96-108) mmol/L Carbon Dioxide (22-29) mmol/L Anion Gap (12-20) BUN (9-16) mg/dL Creatinine (0.5-1.4) mg/dL Estim Creat Clear Calc Estimated GFR Random Glucose (60-115) mg/dL Lactic Acid (0.5-2.0) mmol/L Calcium (8.4-10.2) mg/dL Troponin I High Sens (<3.5-17.0) ng/L Beta HCG, Quant mIU/mL Urine Color YELLOW Urine Appearance HAZY Urine pH 6.5 (5.0-8.0) Ur Specific [place] 1.025 (1.005-1.025) Urine Protein TRACE (NEG-TRACE) MG/DL Urine Glucose (UA) NEG (NEG) MG/DL Urine Ketones 40 (NEG) MG/DL Urine Blood NEG (NEG) Urine Nitrite NEG (NEG) Ur Leukocyte Esterase 1+ H (NEG) Urine RBC 0-2 (0) /HPF Urine WBC 5-9 H (0-4) /HPF Ur Squamous Epith Cells 2+ /LPF Amorphous Sediment 1+ /LPF Urine Bacteria 1+ /LPF Urine Mucus 2+ /LPF Urine Test POSITIVE H (NEGATIVE) COVID-19 (ALICIA) Negative (Negative) COVID-19 Clin Com See Note Influenza Type A ([place]) (Negative) Influenza Type B ([place]) (Negative) Influenza A & B Note 08/30/21 08/30/21 08/30/21 Range/Units 21:57 21:57 21:57 WBC 4.1 L (4.8-10.8) X10*3/uL RBC 4.26 (4.20-5.50) X10*6/uL Hgb 13.5 (12.0-16.0) g/dl Hct 38.9 (37.0-47.0) % MCV 91.3 (80.0-98.0) fL MCH 31.7 (27.0-33.0) pg MCHC 34.7 (31.0-35.0) g/dl RDW 12.7 (11.0-16.0) % Plt Count 166 (160-400) X10*3/uL MPV 11.3 (9.4-12.3) fL Immature Gran % (Auto) 0.2 (0.0-0.4) % Neut % (Auto) 78.3 H (45-73) % Lymph % (Auto) 12.1 L (20-40) % [place] % (Auto) 9.0 (2-11) % Eos % (Auto) 0.2 (0-4) % Baso % (Auto) 0.2 (0-2) % Lymph # (Auto) 0.5 L (1.2-4.9) X10*3/uL [place] # (Auto) 0.4 (0.1-1.2) X10*3/uL Eos # (Auto) 0.0 (0.0-0.4) X10*3/uL Baso # (Auto) 0.0 (0.0-0.2) X10*3/uL Abs Immat Gran (auto) 0.01 (0.00-0.03) X10*3/uL Absolute Neuts (auto) 3.2 (2.0-8.3) x10*3/uL Absolute Nucleated RBC 0.000 (0.0-0.012) X10*3/uL Nucleated RBC % (auto) 0.0 (0.0-0.2) /100WBC Sodium 135 (135-145) mmol/L Potassium 3.9 (3.3-5.1) mmol/L Chloride 105 (96-108) mmol/L Carbon Dioxide 20 L (22-29) mmol/L Anion Gap 14 (12-20) BUN 7 L (9-16) mg/dL Creatinine 0.79 (0.5-1.4) mg/dL Estim Creat Clear Calc 97.2 Estimated GFR > 60 Random Glucose 77 (60-115) mg/dL Lactic Acid (0.5-2.0) mmol/L Calcium 9.2 (8.4-10.2) mg/dL Troponin I High Sens (<3.5-17.0) ng/L Beta HCG, Quant 244 Cancelled mIU/mL Urine Color Urine Appearance Urine pH (5.0-8.0) Ur Specific [place] (1.005-1.025) Urine Protein (NEG-TRACE) MG/DL Urine Glucose (UA) (NEG) MG/DL Urine Ketones (NEG) MG/DL Urine Blood (NEG) Urine Nitrite (NEG) Ur Leukocyte Esterase (NEG) Urine RBC (0) /HPF Urine WBC (0-4) /HPF Ur Squamous Epith Cells /LPF Amorphous Sediment /LPF Urine Bacteria /LPF Urine Mucus /LPF Urine Test (NEGATIVE) COVID-19 (ALICIA) (Negative) COVID-19 Clin Com Influenza Type A ([place]) (Negative) Influenza Type B ([place]) (Negative) Influenza A & B Note 08/30/21 08/30/21 08/30/21 Range/Units 21:57 21:58 23:00 WBC (4.8-10.8) X10*3/uL RBC (4.20-5.50) X10*6/uL Hgb (12.0-16.0) g/dl Hct (37.0-47.0) % MCV (80.0-98.0) fL MCH (27.0-33.0) pg MCHC (31.0-35.0) g/dl RDW (11.0-16.0) % Plt Count (160-400) X10*3/uL MPV (9.4-12.3) fL Immature Gran % (Auto) (0.0-0.4) % Neut % (Auto) (45-73) % Lymph % (Auto) (20-40) % [place] % (Auto) (2-11) % Eos % (Auto) (0-4) % Baso % (Auto) (0-2) % Lymph # (Auto) (1.2-4.9) X10*3/uL [place] # (Auto) (0.1-1.2) X10*3/uL Eos # (Auto) (0.0-0.4) X10*3/uL Baso # (Auto) (0.0-0.2) X10*3/uL Abs Immat Gran (auto) (0.00-0.03) X10*3/uL Absolute Neuts (auto) (2.0-8.3) x10*3/uL Absolute Nucleated RBC (0.0-0.012) X10*3/uL Nucleated RBC % (auto) (0.0-0.2) /100WBC Sodium (135-145) mmol/L Potassium (3.3-5.1) mmol/L Chloride (96-108) mmol/L Carbon Dioxide (22-29) mmol/L Anion Gap (12-20) BUN (9-16) mg/dL Creatinine (0.5-1.4) mg/dL Estim Creat Clear Calc Estimated GFR Random Glucose (60-115) mg/dL Lactic Acid 1.5 (0.5-2.0) mmol/L Calcium (8.4-10.2) mg/dL Troponin I High Sens < 3.5 (<3.5-17.0) ng/L Beta HCG, Quant mIU/mL Urine Color Urine Appearance Urine pH (5.0-8.0) Ur Specific [place] (1.005-1.025) Urine Protein (NEG-TRACE) MG/DL Urine Glucose (UA) (NEG) MG/DL Urine Ketones (NEG) MG/DL Urine Blood (NEG) Urine Nitrite (NEG) Ur Leukocyte Esterase (NEG) Urine RBC (0) /HPF Urine WBC (0-4) /HPF Ur Squamous Epith Cells /LPF Amorphous Sediment /LPF Urine Bacteria /LPF Urine Mucus /LPF Urine Test (NEGATIVE) COVID-19 (ALICIA) (Negative) COVID-19 Clin Com Influenza Type A ([place]) Positive A (Negative) Influenza Type B ([place]) Negative (Negative) Influenza A & B Note See Note ECG Data Attestation: I personally reviewed and interpreted this ECG as follows: Prior ECG tracings: available for review Interpretation: Ventricular rate of 125, CT normal, QRS normal, QT/QTC normal. EKG shows sinus tachycardia, no ST elevations or inversions concerning for ischemia. No previous EKGs to compare with. Critical Care Time Critical Care Time Critical Care Time: No Discharge Plan Discharge Clinical Impression: Influenza A, Patient Disposition: Home, Self-Care Instructions: (ED), Influenza (ED) Additional Instructions: Take your medications as prescribed. Follow-up with your primary care provider this week. Call OBGYN tomorrow to schedule an appointment. Please take your vitamins as prescribed. Return to the emergency department with new or worsening symptoms. Such as abdominal pain, vaginal bleeding, back pain, nausea, vomiting, fevers that will not go away, weakness, lethargy, back pain or flank pain. In case of emergency call 911 Prescriptions: New PNV 29-1 29 mg iron- 1 mg tablet 1 tab PO DAILY Qty: 30 0RF No Action ferrous sulfate 325 mg (65 mg iron) tablet 325 mg PO DAILY Qty: 30 5RF ondansetron HCl [Zofran] 4 mg tablet 4 mg PO Q8H PRN (Reason: nausea and vomiting) Qty: 20 0RF PNV #[id number] acid-[id number] 30 mg iron-10 mg iron-1 mg capsule 1 cap PO DAILY Qty: 30 0RF pantoprazole [Protonix] 40 mg tablet,delayed release (DR/EC) 40 mg PO DAILY Qty: 20 0RF Referrals: Physician,Collins J [Primary Care Provider] - 2 days Ritesh Amos MD [Physician] - 1 day Stand Alone Forms: Work/School Release
[2021-08-30 21:33] VITALS: BP 130/91; PULSE 119; RESP 16; TEMP 37.9; O2SAT 99
[2021-08-30] MEDS: Acetaminophen 325 MG TABLET 650 MG PO (21:54)
[2021-08-30 22:06] LABS: MANUAL DIFF FLAG NO
[2021-08-30 22:09] LABS: Basophils Percent Auto 0.2 % (0-2); Eosinophils Percent Auto 0.2 % (0-4); Hematocrit 38.9 % (37.0-47.0); Hemoglobin 13.5 g/dl (12.0-16.0); Imm Gran Abs Auto 0.01 X10*3/uL (0.00-0.03); Imm Gran Pct Auto 0.2 % (0.0-0.4); Lymphocytes Absolute Auto 0.5 X10*3/uL (1.2-4.9); Lymphocytes Percent Auto 12.1 % (20-40); Mean Corpuscular HGB Conc 34.7 g/dl (31.0-35.0); Mean Corpuscular Hemoglobin 31.7 pg (27.0-33.0); Mean Corpuscular Volume 91.3 fL (80.0-98.0); Mean Platelet Volume 11.3 fL (9.4-12.3); Monocytes Absolute Auto 0.4 X10*3/uL (0.1-1.2); Neutrophils Absolute Auto 3.2 x10*3/uL (2.0-8.3); Neutrophils Percent Auto 78.3 % (45-73); Platelet Count 166 X10*3/uL (160-400); Red Blood Count 4.26 X10*6/uL (4.20-5.50); Red Cell Distribution Width 12.7 % (11.0-16.0); White Blood Count 4.1 X10*3/uL (4.8-10.8)
[2021-08-30 22:25] LABS: Lactic Acid 1.5 mmol/L (0.5-2.0)
[2021-08-30 22:29] LABS: Anion Gap 14 (12-20); Blood Urea Nitrogen 7 mg/dL (9-16); Calcium 9.2 mg/dL (8.4-10.2); Carbon Dioxide 20 mmol/L (22-29); Chloride 105 mmol/L (96-108); Creatinine Clr Calc Pharmacy 97.2; Estimated Glomerular Filt Rate > 60; Glucose Random 77 mg/dL (60-115); Potassium 3.9 mmol/L (3.3-5.1); Sodium 135 mmol/L (135-145)
[2021-08-30 22:35] LABS: HCG Quantitative 244 mIU/mL
[2021-08-30 22:36] LABS: Troponin-I High Sensitivity < 3.5 ng/L (<3.5-17.0)
[2021-08-30 23:19] LABS: Influenza A Positive (Negative); Influenza B2 Negative (Negative)
[2021-08-31 00:09] VITALS: BP 126/74; PULSE 110; RESP 20; TEMP 37.5; O2SAT 97
[2021-08-31 00:38] VITALS: BP 131/86; PULSE 110; RESP 18; TEMP 37.4; O2SAT 97
== END 2021-08-31 01:10 | disposition home or self-care (01) ==
PROVIDERS: Physician Assistant; Emergency Provider Emergency Medicine
DX: J10.1 Influenza due to other identified influenza virus with other respiratory manifestations (principal); Z33.1 Pregnant state, incidental; R00.0 Tachycardia, unspecified; Z20.822 Contact with and (suspected) exposure to COVID-19
CPT/HCPCS: 36415; 80048; 81001; 81025; 83605; 84484; 84702; 85025; 87040; 87086; 87502; 87635; 93005; 99284

== ENCOUNTER 2021-09-02 16:15 | Emergency (ER) | payer MEDICAID, SELFPAY ==
--- NOTE | ~2021-09-02 | US_ITS ---
EXAMINATION: US OBSTETRICAL ULTRASOUND CLINICAL INFORMATION: No hCG. Positive test. 7 weeks , bleeding. Rule out ectopic. COMPARISON: No prior studies available this .. LMP: 07/18/2021. Gestational age by maternal dates is 6 weeks 4 days. Estimated date of delivery by maternal dates is 04/24/2022. TECHNIQUE: Ultrasound of the maternal pelvis is performed using transabdominal and transvaginal transducers. Transvaginal imaging is performed due to inadequate visualization transabdominally. M-mode Doppler is also performed. FINDINGS: No intrauterine seen. Echogenic, mobile fluid in the endometrial canal consistent with blood products. The endometrial stripe is 9-10 mm in thickness. MATERNAL ADNEXA: The right maternal ovary measures 3.1 x 2.4 x 2.2 cm. There are 2 anechoic simple cyst in the right adnexa adjacent the right ovary measuring 1.6 and 0.7 cm in diameter. The left maternal ovary measures 2.4 x 2.1 x 1.7 cm. No left adnexal mass. Small physiologic volume of simple free fluid in the pelvic cul-de-sac. US/US OB pelvic and transvaginal IMPRESSION: No intrauterine identified. Mobile echogenic material in the endometrial canal suggests blood products, consistent with history of vaginal bleeding. This remains a of indeterminate location and an ectopic remains a consideration. Simple appearing right adnexal cysts are seen, the largest 1.6 cm in diameter. These are of uncertain significance in the setting of the patient's reported prior positive test.
[2021-09-02 16:18] VITALS: BP 146/86; PULSE 99; RESP 24; TEMP 36.7; O2SAT 99; BMI 24.0
[2021-09-02 18:37] LABS: Appearance Urine HAZY; Color Urine YELLOW; Glucose Urine UA NEG (NEG); Leukocyte Esterase Urine NEG (NEG); Nitrite Urine NEG (NEG); PH 6.5 (5.0-8.0); Specific Gravity - Urine 1.015 (1.005-1.025); UACC Culture Trigger NO; Urine Blood 3+ (NEG); Urine Ketones 40 MG/DL (NEG); Urine Protein TRACE MG/DL (NEG-TRACE)
[2021-09-02 18:40] LABS: UPreg QC Valid YES; Urine Pregnancy POSITIVE (NEGATIVE)
[2021-09-02 18:45] LABS: RBC Urine 30-49 /HPF (0); WBC Urine 0-2 /HPF (0-4)
[2021-09-02 18:46] LABS: Bacteria Urine TRACE /LPF; Mucus Urine 1+ /LPF; Squamous Epithelial Cell Urine 1+ /LPF
--- NOTE | 2021-09-02 18:57 | PC.NURSE ---
patient to ultrasound
--- NOTE | 2021-09-02 19:25 | PC.NURSE ---
patient difficult stick, attempted iv access unable to gain access, pt had a straight stick-able to obtain labs
[2021-09-02 19:29] VITALS: BP 136/94; PULSE 94; RESP 14; O2SAT 99
[2021-09-02 19:29] LABS: MANUAL DIFF FLAG NO
[2021-09-02 19:31] LABS: Basophils Percent Auto 0.4 % (0-2); Eosinophils Percent Auto 0.7 % (0-4); Hematocrit 38.4 % (37.0-47.0); Hemoglobin 13.8 g/dl (12.0-16.0); Lymphocytes Absolute Auto 1.4 X10*3/uL (1.2-4.9); Lymphocytes Percent Auto 48.1 % (20-40); Mean Corpuscular HGB Conc 35.9 g/dl (31.0-35.0); Mean Corpuscular Hemoglobin 31.9 pg (27.0-33.0); Mean Corpuscular Volume 88.9 fL (80.0-98.0); Mean Platelet Volume 10.7 fL (9.4-12.3); Monocytes Absolute Auto 0.2 X10*3/uL (0.1-1.2); Monocytes Percent Auto 7.8 % (2-11); Neutrophils Absolute Auto 1.2 x10*3/uL (2.0-8.3); Platelet Count 152 X10*3/uL (160-400); Red Blood Count 4.32 X10*6/uL (4.20-5.50); Red Cell Distribution Width 12.5 % (11.0-16.0); White Blood Count 2.8 X10*3/uL (4.8-10.8)
[2021-09-02 19:49] LABS: Alanine Aminotransferase 31 U/L (0-31); Albumin Level 3.9 g/dL (3.5-5.0); Alkaline Phosphatase 86 U/L (39-117); Anion Gap 13 (12-20); Aspartate Amino Transferase 34 U/L (5-31); Bilirubin Total 0.4 mg/dL (0.0-1.0); Blood Urea Nitrogen 8 mg/dL (9-16); Calcium 9.1 mg/dL (8.4-10.2); Carbon Dioxide 23 mmol/L (22-29); Chloride 105 mmol/L (96-108); Creatinine Clr Calc Pharmacy 105.2; Estimated Glomerular Filt Rate > 60; Glucose Random 80 mg/dL (60-115); Potassium 4.3 mmol/L (3.3-5.1); Sodium 137 mmol/L (135-145); Total Protein 7.1 g/dL (6.5-8.0)
[2021-09-02 19:54] LABS: HCG Quantitative 498 mIU/mL
[2021-09-02 20:00] VITALS: BP 128/76; PULSE 92; RESP 20; TEMP 36.7; O2SAT 99
--- NOTE | 2021-09-02 20:20 | ED_ITS ---
HPI - General Chief complaint: Vaginal Bleeding Stated complaint: 2 months / vaginal bleeding Time Seen by Provider: 09/02/21 17:46 Source: patient Mode of arrival: ambulatory Limitations: no limitations History of Present Illness HPI Narrative: 20-year-old female presents for heavy vaginal bleeding this morning and lower abdominal cramping. Patient's last menstrual period was 07/18/2021. Patient is 7 weeks . This is patient's 3rd , she has 1 son who is 5-month-old, and had a stillbirth 2nd trimester in the past. Patient states she is bleeding through 2 pads since this morning. No fevers. MD Complaint: vaginal bleeding Onset (ago): hour(s) (8) Quality: Cramping Associated symptoms: denies other symptoms and vaginal bleeding Patient : Yes Related Data Previous Rx's Medication Instructions Recorded ondansetron HCl 4 mg tablet 4 mg PO Q8H PRN #20 tab 08/31/20 (Zofran) vitamin#30 30 mg iron-10 1 cap PO DAILY #30 cap 08/31/20 mg iron-folic acid 1 mg-omg3 capsule ferrous sulfate 325 mg (65 mg 325 mg PO DAILY #30 tab 01/19/21 iron) tablet pantoprazole 40 mg tablet,delayed 40 mg PO DAILY #20 tab 06/12/21 release (Protonix) vitamin 1 tab PO DAILY #30 tab 08/31/21 no.76-iron,carbonyl 29 mg iron-folic acid 1 mg tablet (PNV 29-1) Allergies Allergy/AdvReac Type Severity Reaction Status Date / Time No Known Allergies Allergy Verified 02/03/21 09:47 Review of Systems Constitutional: Constitutional: Denies body ache(s), Denies chills, Denies fatigue, Denies fever(s), Denies headache(s), Denies malaise and Denies weakness Eyes: Eyes: Denies diplopia ENT: Denies vertigo, Denies dizziness, Denies headache(s) and Denies throat swelling Cardiovascular: Cardiovascular: Denies chest pain, Denies syncope, Denies leg edema, Denies lightheadedness, Denies Loss of Consciousness, Denies palpitations and Denies dyspnea Respiratory: Respiratory: Denies chest congestion, Denies cough and Denies dyspnea Gastrointestinal: Gastrointestinal: Denies abdominal pain, Denies hematochezia, Denies constipation, Denies diarrhea and Denies vomiting Genitourinary: Genitourinary: Reports abnormal vaginal bleeding () Musculoskeletal: Musculoskeletal: Reports no additional musculoskeletal complaints Neurologic: Denies confusion, Denies vertigo, Denies dizziness, Denies syncope, Denies headache(s) and Denies weakness Psychiatric: Psychiatric: Denies anxiety, Denies confusion and Denies depression Endocrine: Endocrine: Denies fatigue and Denies palpitations Allergic/Immunologic: Allergic/Immunologic: Denies throat swelling PMFSH Past Medical History Medical History History of depression History of stillbirth in currently patient PCOS (polycystic ovarian syndrome) Social History Social History Household Members: Family Both parents involved: No Alcohol intake: never Patient Tobacco Use Status: Never used Tobacco Cigarettes Per Day: 1 Years Smoked: 1 Trauma History: no Sexual orientation: Straight/Heterosexual Gender identity: Female Physical Exam Vital Signs: Vital Signs: Last Vital Signs Temp 98.1 F 09/02/21 20:00 Pulse 92 09/02/21 20:00 Resp 20 09/02/21 20:00 BP 128/76 09/02/21 20:00 Pulse Ox 99 09/02/21 20:00 BMI result Body Mass Index 24.0 Const: General: No confusion Nutritional Appearance: well nourished Orientation/consciousness: No confusion Limitations: no limitations Eyes: Conjunctivae: conjunctivae normal Pupils: Equal, round and reactive pupils present EOM: EOMs intact bilaterally Neck: Neck: Yes full ROM, Yes no lymphadenopathy and Yes supple Resp: Effort & Inspection: normal respiratory effort and able to speak in complete sentences Auscultation: clear to auscultation bilaterally, no crackles, no rales, no rhonchi and no wheezes Cardio: Rate: regular rate Rhythm: regular rhythm Heart sounds: S1 normal heart sound present and S2 normal heart sound present GI: Inspection: Yes normal to inspection Palpation (GI): Soft to palpation, nontender, no guarding and not rigid Percussion: Yes normal to percussion Auscultation: normal bowel sounds : Other: pt was to anxious to toleerate a speculum exam General: Yes bladder normal to inspection and Yes no CVA tenderness External Female Exam: normal external appearance Speculum Exam - Vagina: vaginal bleeding Speculum Exam - Cervix: normal palpation and nontender Bimanual exam- vagina & uterus: normal palpation and No Cervical tenderness present Bimanual Exam- Adnexa, other: tender on the left OB/external & speculum: vaginal bleeding Back/Spine/Pelvis: Back: no CVA tenderness Skin: General skin exam: no rashes or lesions noted Neuro: General: No confusion Cranial nerves: Yes Equal, round and reactive pupils present Extrem: General: Yes normal to inspection and Yes full ROM Psych: Appearance: grossly normal Affect: normal affect Attitude: cooperative Thought process: Normal thought process present Course Course Course Narrative: 7-week-old female presents with vaginal bleeding and mild pelvic cramping that started this morning. Patient has benign abdominal exam, belly is soft, nontender. Pelvic exam limited by patient's anxiety, was not able to do s peculum exam. She was able to do bimanual exam, patient has tender left adnexa. Labs show white blood cell 2.8, no anemia, patient has an hCG of 498. Positive urine . Patient has changed her pad 1 time since she has been here. Discussed case with . He says with an hCG of 4 98 and no IUP, this could be a normal early , could be a spontaneous , could be early ectopic. No adnexal masses seen by ultrasound. Has counseled patient she must come back in 48 hours for repeat hCG. Patient verbalized agreement understanding. Counseled patient she should return for any worsening bleeding worsening pelvic pain, or any abdominal pain. Gave patientDr Amos's number, but if she cannot get into his office on September 04, Saturday, she must come back to emergency room for a repeat hCG. Patient verbalized agreement understanding of this plan US/US OB pelvic and transvaginal IMPRESSION: No intrauterine identified. Mobile echogenic material in the endometrial canal suggests blood products, consistent with history of vaginal bleeding. This remains a of indeterminate location and an ectopic remains a consideration. ? Simple appearing right adnexal cysts are seen, the largest 1.6 cm in diameter. These are of uncertain significance in the setting of the patient's reported prior positive test. MDM - OB/Uterine Contractions Lab Data Result diagrams: 09/02/21 19:25 09/02/21 19:25 Labs: Lab Results 09/02/21 09/02/21 09/02/21 Range/Units 18:31 18:31 19:25 WBC 2.8 L (4.8-10.8) X10*3/uL RBC 4.32 (4.20-5.50) X10*6/uL Hgb 13.8 (12.0-16.0) g/dl Hct 38.4 (37.0-47.0) % MCV 88.9 (80.0-98.0) fL MCH 31.9 (27.0-33.0) pg MCHC 35.9 H (31.0-35.0) g/dl RDW 12.5 (11.0-16.0) % Plt Count 152 L (160-400) X10*3/uL MPV 10.7 (9.4-12.3) fL Immature Gran % (Auto) 0.0 (0.0-0.4) % Neut % (Auto) 43.0 L (45-73) % Lymph % (Auto) 48.1 H (20-40) % [place] % (Auto) 7.8 (2-11) % Eos % (Auto) 0.7 (0-4) % Baso % (Auto) 0.4 (0-2) % Lymph # (Auto) 1.4 (1.2-4.9) X10*3/uL [place] # (Auto) 0.2 (0.1-1.2) X10*3/uL Eos # (Auto) 0.0 (0.0-0.4) X10*3/uL Baso # (Auto) 0.0 (0.0-0.2) X10*3/uL Abs Immat Gran (auto) 0.00 (0.00-0.03) X10*3/uL Absolute Neuts (auto) 1.2 L (2.0-8.3) x10*3/uL Absolute Nucleated RBC 0.000 (0.0-0.012) X10*3/uL Nucleated RBC % (auto) 0.0 (0.0-0.2) /100WBC Sodium (135-145) mmol/L Potassium (3.3-5.1) mmol/L Chloride (96-108) mmol/L Carbon Dioxide (22-29) mmol/L Anion Gap (12-20) BUN (9-16) mg/dL Creatinine (0.5-1.4) mg/dL Estim Creat Clear Calc Estimated GFR Random Glucose (60-115) mg/dL Calcium (8.4-10.2) mg/dL Total Bilirubin (0.0-1.0) mg/dL AST (5-31) U/L ALT (0-31) U/L Alkaline Phosphatase (39-117) U/L Total Protein (6.5-8.0) g/dL Albumin (3.5-5.0) g/dL Beta HCG, Quant mIU/mL Urine Color YELLOW Urine Appearance HAZY Urine pH 6.5 (5.0-8.0) Ur Specific [place] 1.015 (1.005-1.025) Urine Protein TRACE (NEG-TRACE) MG/DL Urine Glucose (UA) NEG (NEG) MG/DL Urine Ketones 40 (NEG) MG/DL Urine Blood 3+ H (NEG) Urine Nitrite NEG (NEG) Ur Leukocyte Esterase NEG (NEG) Urine RBC 30-49 H (0) /HPF Urine WBC 0-2 (0-4) /HPF Ur Squamous Epith Cells 1+ /LPF Urine Bacteria TRACE /LPF Urine Mucus 1+ /LPF Urine Test POSITIVE H (NEGATIVE) 09/02/21 Range/Units 19:25 WBC (4.8-10.8) X10*3/uL RBC (4.20-5.50) X10*6/uL Hgb (12.0-16.0) g/dl Hct (37.0-47.0) % MCV (80.0-98.0) fL MCH (27.0-33.0) pg MCHC (31.0-35.0) g/dl RDW (11.0-16.0) % Plt Count (160-400) X10*3/uL MPV (9.4-12.3) fL Immature Gran % (Auto) (0.0-0.4) % Neut % (Auto) (45-73) % Lymph % (Auto) (20-40) % [place] % (Auto) (2-11) % Eos % (Auto) (0-4) % Baso % (Auto) (0-2) % Lymph # (Auto) (1.2-4.9) X10*3/uL [place] # (Auto) (0.1-1.2) X10*3/uL Eos # (Auto) (0.0-0.4) X10*3/uL Baso # (Auto) (0.0-0.2) X10*3/uL Abs Immat Gran (auto) (0.00-0.03) X10*3/uL Absolute Neuts (auto) (2.0-8.3) x10*3/uL Absolute Nucleated RBC (0.0-0.012) X10*3/uL Nucleated RBC % (auto) (0.0-0.2) /100WBC Sodium 137 (135-145) mmol/L Potassium 4.3 (3.3-5.1) mmol/L Chloride 105 (96-108) mmol/L Carbon Dioxide 23 (22-29) mmol/L Anion Gap 13 (12-20) BUN 8 L (9-16) mg/dL Creatinine 0.73 (0.5-1.4) mg/dL Estim Creat Clear Calc 105.2 Estimated GFR > 60 Random Glucose 80 (60-115) mg/dL Calcium 9.1 (8.4-10.2) mg/dL Total Bilirubin 0.4 (0.0-1.0) mg/dL AST 34 H (5-31) U/L ALT 31 (0-31) U/L Alkaline Phosphatase 86 (39-117) U/L Total Protein 7.1 (6.5-8.0) g/dL Albumin 3.9 (3.5-5.0) g/dL Beta HCG, Quant 498 mIU/mL Urine Color Urine Appearance Urine pH (5.0-8.0) Ur Specific [place] (1.005-1.025) Urine Protein (NEG-TRACE) MG/DL Urine Glucose (UA) (NEG) MG/DL Urine Ketones (NEG) MG/DL Urine Blood (NEG) Urine Nitrite (NEG) Ur Leukocyte Esterase (NEG) Urine RBC (0) /HPF Urine WBC (0-4) /HPF Ur Squamous Epith Cells /LPF Urine Bacteria /LPF Urine Mucus /LPF Urine Test (NEGATIVE) Discharge Plan Discharge Clinical Impression: Vaginal bleeding in patient at less than 20 weeks gestation Patient Disposition: Home, Self-Care Additional Instructions: We are not sure if you are still , if your miscarrying, or if this is an early ectopic . To tell, you need to return in 24 hours and have a repeat hormone test. Please return to the emergency room or call Dr. Amos is office's Saturday at [phone] YOU MUST RETURN TO THE EMERGENCY ROOM IN 48 HOURS TO HAVE A REPEAT HORMONE TEST. YOU MUST RETURN BY SATURDAY EVENING If you have worsening pain, worsening bleeding, please return earlier Prescriptions: No Action ferrous sulfate 325 mg (65 mg iron) tablet 325 mg PO DAILY Qty: 30 5RF ondansetron HCl [Zofran] 4 mg tablet 4 mg PO Q8H PRN (Reason: nausea and vomiting) Qty: 20 0RF PNV #[id number] 30 mg iron-10 mg iron-1 mg capsule 1 cap PO DAILY Qty: 30 0RF PNV 29-1 29 mg iron- 1 mg tablet 1 tab PO DAILY Qty: 30 0RF pantoprazole [Protonix] 40 mg tablet,delayed release (DR/EC) 40 mg PO DAILY Qty: 20 0RF Referrals: Ritesh Amos MD [Physician] - 2 days Interventions: ED Discharge Assessment Last Done: 09/02/21 21:23 Discharge Date/Time: 09/02/21 21:23
--- NOTE | 2021-09-02 20:37 | P.CONOB_ITS ---
NON DESTRUCTIVE TESTING SPECIALIST - CN: HPI Data of Consult Consult date: 09/02/21 Primary Care Provider: Lacie Gimenez MD Consult Narrative Narrative: I was consulted on Majesty Josephine Gaona who is a 20 year old female who presented to the emergency room complaining of vaginal bleeding. The patient states that she changed 1 pad since the morning. The bleeding is associated with pelvic cramping, no other associated symptoms. HCG done on 08/30 was 244. Rh positive. Workup done emergency room included is normal CBC, hCG 498. Pelvic ultrasound showed no IUP possible blood endometrial canal consistent with history of vaginal bleeding, no adnexal masses, simple right ovarian cyst measuring 1.6 cm. cc:: CC: [employer] - Review of Systems Review of Systems ROS Unobtainable: All systems reviewed & are unremarkable except as noted in HPI and below Cardiovascular: Denies Palpatations, Loss of consciousness or Chest pain Respiratory: Denies Cough, Wheezing or Shortness of breath Musculoskeletal: Denies Low back pain Gastrointestinal: Denies Heartburn, Constipation, Diarrhea, Nausea or Vomiting Genitourinary: Denies Pain with urination, Burning with urination or Urinary frequency Neurological: Denies Migranes Psychological: Denies Depression OB PMFSH Past Medical History Medical History History of depression History of stillbirth in currently patient PCOS (polycystic ovarian syndrome) Social History Social History Household Members: Family Alcohol intake: never Patient Tobacco Use Status: Never used Tobacco Cigarettes Per Day: 1 Years Smoked: 1 Use of substances other than those prescribed or required for medical reasons: No Trauma History: no Advance Directives: No Advance Directives Information Provided: Yes Patient : Yes Sexual orientation: Straight/Heterosexual Gender identity: Female Meds Allergies Allergy/AdvReac Type Severity Reaction Status Date / Time No Known Allergies Allergy Verified 02/03/21 09:47 NON DESTRUCTIVE TESTING SPECIALIST Physical Exam Vitals Vital signs: Temp Pulse Resp BP Pulse Ox 98.0 F 94 14 136/94 H 99 09/02/21 16:18 09/02/21 19:29 09/02/21 19:29 09/02/21 19:29 09/02/21 19:29 BMI result Body Mass Index 24.0 Constitutional General Appearance: Healthy appearing, Well-nourished and Well-developed Psychiatric Mood and Affect: active and alert, normal mood and normal affect Skin Appearance: No rashes and No lesions Lungs Respiratory Effort: No intercostal retractions Auscultation: Clear to auscultation Cardiovascular Auscultation: RRR Female Genitalia (Pelvic) Exam: Deferred Additional Comments: Physical exam done by GAMAL Salvador reported as the following: Abdominal exam :soft nontender Pelvic exam: No speculum exam done because of patient anxiety, otherwise nonsignificant findings NON DESTRUCTIVE TESTING SPECIALIST - Results Labs CBC & Chem 7: 09/02/21 19:25 09/02/21 19:25 Labs: Short CBC 09/02/21 Range/Units 19:25 WBC 2.8 L (4.8-10.8) X10*3/uL Hgb 13.8 (12.0-16.0) g/dl Hct 38.4 (37.0-47.0) % Plt Count 152 L (160-400) X10*3/uL BMP 09/02/21 19:25 Sodium 137 Potassium 4.3 Chloride 105 Carbon Dioxide 23 BUN 8 L Creatinine 0.73 Calcium 9.1 Liver Function 09/02/21 Range/Units 19:25 Total Bilirubin 0.4 (0.0-1.0) mg/dL AST 34 H (5-31) U/L ALT 31 (0-31) U/L Alkaline Phosphatase 86 (39-117) U/L Albumin 3.9 (3.5-5.0) g/dL Urine 09/02/21 09/02/21 Range/Units 18:31 18:31 Urine Color YELLOW Urine Appearance HAZY Urine pH 6.5 (5.0-8.0) Ur Specific [place] 1.015 (1.005-1.025) Urine Protein TRACE (NEG-TRACE) MG/DL Urine Glucose (UA) NEG (NEG) MG/DL Urine Test POSITIVE H (NEGATIVE) Imaging US - abdomen: Radiologist's impression: ITS Impressions Pelvic/Transvag US 09/02/21 18:57 IMPRESSION: No intrauterine identified. Mobile echogenic material in the endometrial canal suggests blood products, consistent with history of vaginal bleeding. This remains a of indeterminate location and an ectopic remains a consideration. Simple appearing right adnexal cysts are seen, the largest 1.6 cm in diameter. These are of uncertain significance in the setting of the patient's reported prior positive test. Assessment and Plan (1) First trimester bleeding: Status: Acute Discussed with GAMAL Blackburn in the emergency room the following: Early with 1st trimester bleeding, no evidence of active bleeding, normal CBC, hCG jeremias 242 to 498 in 3 days, Rh positive. Benign abdominal exam, no evidence of adnexal masses on ultrasound. Differential diagnosis includes early normal intrauterine , SAB, or ectopic . Recommended repeat hCG quantitative in 48 hours with an outpatient in office evaluation. I sent a message to my office to contact the patient on Saturday for a same day appointment with hCG quantitative to be done prior to the visit. Warnings to be given to the patient, she is to call or come back to emergency room in case of heavy vaginal bleeding and or pelvic pain.
== END 2021-09-02 21:23 | disposition home or self-care (01) ==
PROVIDERS: Physician Assistant; Emergency Provider Emergency Medicine; PCP Internal Medicine
DX: O20.9 Hemorrhage in early pregnancy, unspecified (principal); Z3A.01 Less than 8 weeks gestation of pregnancy
CPT/HCPCS: 36415; 76801; 76817; 80053; 81001; 81025; 84702; 85025; 99284

== ENCOUNTER 2021-09-04 09:57 | Outpatient (REF) | payer MEDICAID, SELFPAY ==
--- NOTE | ~2021-09-04 | US_ITS ---
EXAMINATION: US OBSTETRICAL ULTRASOUND CLINICAL INFORMATION: Hemorrhage in early COMPARISON: Previous exam 09/02/2021. LMP: 07/18/2021. Gestational age by maternal dates is 6 weeks 6 days. Estimated date of delivery by maternal dates is 04/24/2022. TECHNIQUE: Transabdominal and transvaginal pelvic ultrasound was performed. Transvaginal exam was performed for better visualization of the uterus and ovaries. FINDINGS: The uterus is anteverted and normal in size and shape. Appreciated transvaginally only are new cystic areas in the endometrium. The endometrium does not appear thickened measuring 0.6 cm. No focal uterine lesion is seen. The right ovary measures 2.8 x 1.5 x 1.8 cm. There are 2 simple right adnexal cysts measuring 1.2 x 1.2 x 1 cm and 0.7 x 0.9 x 0.5 cm. These appear unchanged. Left ovary is normal-appearing and measures 2.5 x 1.6 x 1.6 cm. There is no fluid in the pelvis. US/US OB pelvic and transvaginal IMPRESSION: No intrauterine seen. New cystic areas in the endometrial cavity on transvaginal imaging only. Stable small right adnexal simple cysts measuring 1.2 x 1.2 x 1 cm and 0.7 x 0.9 x 0.5 cm.
[2021-09-04 11:17] LABS: HCG Quantitative 775 mIU/mL
[2021-09-05 09:17] LABS: CT PCR DETECTED (Not Detect.); NG PCR NOT DETECTED (Not Detect.)
== END 2021-09-04 09:58 | disposition home or self-care (01) ==
LOC: HO.LAB 09:57
PROVIDERS: PCP Internal Medicine; Visit Provider Obstetrics & Gynecology
DX: O20.9 Hemorrhage in early pregnancy, unspecified (principal)
CPT/HCPCS: 36415; 76801; 76817; 84702; 87491; 87591; 99212

== ENCOUNTER 2021-09-05 12:48 | Outpatient (REF) | payer MEDICAID, SELFPAY ==
[2021-09-05 15:00] LABS: HCG Quantitative 865 mIU/mL
[2021-09-06 03:46] LABS: HIV AB/AG Nonreactive (Nonreactive); HIV Num 1 0.07 S/CO (0.00-0.99)
[2021-09-06 03:47] LABS: Syphilis Screen Nonreactive (Nonreactive)
[2021-09-06 03:59] LABS: HBsAGNum1 0.19 S/CO (0.00-0.99); Hepatitis B Surface Antigen Negative (Negative); ~HepC Num1 0.09 S/CO (0.00-0.79); ~Hepatitis C Antibody Nonreactive (Nonreactive)
== END 2021-09-05 12:49 | disposition home or self-care (01) ==
LOC: HO.LAB 12:48
PROVIDERS: PCP Internal Medicine; Visit Provider Obstetrics & Gynecology
DX: Z11.4 Encounter for screening for human immunodeficiency virus [HIV] (principal); O20.9 Hemorrhage in early pregnancy, unspecified; A74.9 Chlamydial infection, unspecified
CPT/HCPCS: 36415; 84702; 86780; 86803; 87340; 87389

== ENCOUNTER 2021-09-06 10:23 | Outpatient (REF) | payer MEDICAID, SELFPAY ==
[2021-09-06 11:36] LABS: HCG Quantitative 1089 mIU/mL
== END 2021-09-06 10:24 | disposition home or self-care (01) ==
LOC: HO.LAB 10:23
PROVIDERS: PCP Internal Medicine; Visit Provider Obstetrics & Gynecology
DX: O20.9 Hemorrhage in early pregnancy, unspecified (principal)
CPT/HCPCS: 36415; 84702; 99212

== ENCOUNTER 2021-09-08 09:32 | Outpatient (REF) | payer MEDICAID, SELFPAY ==
--- NOTE | ~2021-09-08 | US_ITS ---
EXAMINATION: OBSTETRICAL ULTRASOUND, FIRST TRIMESTER HISTORY: 20-year-old with uncertain LMP and vaginal spotting LMP: 07/18/2021 unsure COMPARISON: 09/04/2021 TECHNIQUE: Real time transabdominal imaging with color and M-mode Doppler. FINDINGS: An empty intrauterine gestational sac with a mean diameter of 0.4 mm consistent with 4 weeks and 6 days is noted. No yolk sac or embryonic pole present. No free fluid in the cul-de-sac. Both maternal ovaries are seen and appear normal. GESTATIONAL AGE: 1. GA from LMP: 7.3 wks 2. GA from AUA: 4.6 wks ESTIMATED DATE OF DELIVERY: 1. MILVIA from LMP: 04/24/2022 2. MILVIA from AUA: 05/12/2022 US/US OB pelvic and transvaginal IMPRESSION: 1. An empty intrauterine gestational sac consistent with 4 weeks and 6 days of gestation. 2. Neither yolk sac nor embryonic pole is present. However this can be consistent with the early GA. Discussion: I informed the patient that that today's findings can be consistent with the early . She reports that her period was not regular. She had a full-term delivery approximately 5 months ago. I informed her that based on today's findings, it is difficult to rule out a normal . Her serum beta hCG jeremias from 498 on July 04 to 1098 on July 06. A repeat level is pending. Clinical correlation suggested. Follow up in 2 weeks as clinically indicated. Thank you very much for this referral. Total time 20 minutes. The time spent was devoted to counseling the patient about the disease and diagnosis, coordinating care including reviewing her records, pertinent lab data and studies, as well as discussing diagnostic evaluation and workup, plan therapeutic interventions and future disposition of care. This includes any additional research needed to obtain further information in formulating the plan of care of this patient. This note was generated with a voice recognition program. Please excuse any errors which may have been overlooked during my review of this note. Sometimes these errors may affect the content or meaning of a given sentence.
[2021-09-08 10:33] LABS: HCG Quantitative 1433 mIU/mL
== END 2021-09-08 09:33 | disposition home or self-care (01) ==
LOC: HO.US 09:32
PROVIDERS: PCP Internal Medicine; Visit Provider Obstetrics & Gynecology
DX: O20.9 Hemorrhage in early pregnancy, unspecified (principal)
CPT/HCPCS: 36415; 76801; 76817; 84702; 99212

== ENCOUNTER 2021-09-12 14:01 | Outpatient (REF) | payer MEDICAID, SELFPAY ==
--- NOTE | ~2021-09-12 | US_ITS ---
EXAMINATION: US OBSTETRICAL ULTRASOUND CLINICAL INFORMATION: Encounter for supervision abnormal COMPARISON: Previous pelvic ultrasounds most recent 09/08/2021. LMP: 07/18/2021. Gestational age by maternal dates is 8 weeks 0 days. Estimated date of delivery by maternal dates is 04/24/2022. TECHNIQUE: Transabdominal and transvaginal pelvic ultrasound was performed. Transvaginal exam was performed for better visualization of the gestational sac FINDINGS: The uterus is normal in size and shape. There is an intrauterine gestational sac and yolk sac. There is question of identification of a pole. This measures 0.24 cm which would suggest gestational age of 5 weeks 4 days with estimated date of delivery of 05/11/2022. No heart activity is seen. The right ovary is normal-appearing. There are 2 simple right adnexal cysts that measure 1.7 x 0.8 x 1.4 cm and 1 x 0.4 x 1 cm. These appear unchanged. Left ovary is normal-appearing and measures 2.3 x 1.5 x 2.4 cm. There is no fluid in the pelvis. US/US OB pelvic and transvaginal IMPRESSION: Intrauterine gestational sac and yolk sac. Question identification of a pole. Stable small simple right adnexal cysts.
[2021-09-12 14:58] LABS: HCG Quantitative 3862 mIU/mL
== END 2021-09-12 14:02 | disposition home or self-care (01) ==
LOC: HO.US 14:01
PROVIDERS: PCP Internal Medicine; Visit Provider Obstetrics & Gynecology
DX: Z34.91 Encounter for supervision of normal pregnancy, unspecified, first trimester (principal)
CPT/HCPCS: 36415; 76801; 76817; 84702; 87491; 87591; 99212

== ENCOUNTER 2021-09-12 15:23 | Outpatient (REF) | payer MEDICAID, SELFPAY ==
[2021-09-12 19:01] LABS: CT PCR NOT DETECTED (Not Detect.); NG PCR NOT DETECTED (Not Detect.)
== END 2021-09-12 15:24 | disposition home or self-care (01) ==
LOC: HO.LAB 15:23
PROVIDERS: Visit Provider Obstetrics & Gynecology
DX: Z34.90 Encounter for supervision of normal pregnancy, unspecified, unspecified trimester (principal); A74.9 Chlamydial infection, unspecified
CPT/HCPCS: 87491; 87591

== ENCOUNTER 2021-10-11 13:41 | Outpatient (REF) | payer MEDICAID, SELFPAY ==
[2021-10-12 02:49] LABS: CT PCR NOT DETECTED (Not Detect.); NG PCR NOT DETECTED (Not Detect.)
== END 2021-10-11 13:42 | disposition home or self-care (01) ==
LOC: HO.LAB 13:41
PROVIDERS: Visit Provider Obstetrics & Gynecology
DX: O26.851 Spotting complicating pregnancy, first trimester (principal); O26.891 Other specified pregnancy related conditions, first trimester; A74.9 Chlamydial infection, unspecified; Z3A.09 9 weeks gestation of pregnancy
CPT/HCPCS: 87491; 87591; 99212

== ENCOUNTER 2021-10-13 11:47 | Outpatient (REF) | payer MEDICAID, SELFPAY ==
--- NOTE | ~2021-10-13 | US_ITS ---
EXAMINATION: OBSTETRICAL ULTRASOUND, FIRST TRIMESTER HISTORY: 21-year-old with positive test LMP: Unknown COMPARISON: 09/12/2021 TECHNIQUE: Real time transabdominal imaging with color and M-mode Doppler. FINDINGS: A single, live IUP CRL of 32.7 mm c/w 10.2wks is noted. Heart Rate: 170 beats per minute. Subchorionic hematoma measuring 3.0 x 3.1 x 3.4 cm was noted on the posterior, left lateral portion of the uterus. Both maternal ovaries are seen and appear normal. GESTATIONAL AGE: 1. GA from LMP: 10.2 wks 2. GA from AUA: 10.0 wks ESTIMATED DATE OF DELIVERY: 1. MILVIA from LMP: 05/09/2022 2. MILVIA from AUA: 05/11/2022 US/US OB <= 14 weeks fetus IMPRESSION: 1. A single live IUP 2. Size equals dates 3. Subchorionic hematoma 3.0 x 3.1 x 3.4 cm A follow-up in approximately 2 weeks for NT evaluation has been scheduled. Thank you very much for this referral. This note was generated with a voice recognition program. Please excuse any errors which may have been overlooked during my review of this note. Sometimes these errors may affect the content or meaning of a given sentence.
== END 2021-10-13 11:48 | disposition home or self-care (01) ==
LOC: HO.US 11:47
PROVIDERS: PCP Internal Medicine; Visit Provider Obstetrics & Gynecology
DX: Z34.91 Encounter for supervision of normal pregnancy, unspecified, first trimester (principal)
CPT/HCPCS: 76801

== ENCOUNTER → 2021-10-16 12:55 | Outpatient (BNVA) | payer MEDICAID, SELFPAY | PROVIDERS: PCP Internal Medicine; Visit Provider Obstetrics & Gynecology | DX: O41.8X90 Other specified disorders of amniotic fluid and membranes, unspecified trimester, not applicable or unspecified (principal); O46.8X9 Other antepartum hemorrhage, unspecified trimester | CPT/HCPCS: 99212 ==

== ENCOUNTER → 2021-10-24 13:43 | Outpatient (BNVA) | payer MEDICAID, SELFPAY | PROVIDERS: PCP Internal Medicine; Visit Provider Obstetrics & Gynecology | DX: Z13.89 Encounter for screening for other disorder (principal) ==

== ENCOUNTER 2021-10-27 09:36 | Outpatient (REF) | payer MEDICAID, SELFPAY ==
--- NOTE | ~2021-10-27 | US_ITS ---
EXAMINATION: OBSTETRICAL ULTRASOUND, FIRST TRIMESTER HISTORY: 21-year-old at 12.0 weeks of gestation NT screening COMPARISON: 10/13/2021 TECHNIQUE: Real time transabdominal imaging with color and M-mode Doppler. FINDINGS: A single, live IUP CRL of 61.0 mm c/w 12.4wks is noted. Heart Rate: 149 beats per minute. Normal yolk sac seen. NT was 1.2.mm. NB Present The embryo appears sonographically wnl for this GA. Both maternal ovaries are seen and appear normal. GESTATIONAL AGE: 1. Established GA: 12.0 wks 2. GA from [facility]: 12.4 wks ESTIMATED DATE OF DELIVERY: 1. Established [facility]: 05/11/2022 2. [facility] from [facility]: 05/07/2022 US/US OB 1T nuc measure IMPRESSION: 1. A single live IUP 2. Size equals dates 3. NT of 1.2 mm MFM Consultation: I reviewed the ultrasound findings along with significance of NT measurement. The NT of less than 3mm is generally reassuring. However, the sensitivity for T21 detection is only 60%. I reviewed the availability of serum aneuploidy screening which includes cell-free DNA and placental protein based tests. I discussed the sensitivity, false-positive rate, and other limitations associated with each test. I also reviewed the availability of invasive diagnostic tests that are associated small but definite risk of miscarriage. We also reviewed the differences between screening tests and diagnostic tests. After our discussion, she opted for the First trimester screening that is based on cell-free DNA or non-invasive testing (NIPT). The result will be faxed to your office in approximately 7 days. A follow up at 18 weeks for survey has been scheduled. Thank you very much for this referral. Total time 30 minutes. The time spent was devoted to counseling the patient about the disease and diagnosis, coordinating care including reviewing her records, pertinent lab data and studies, as well as discussing diagnostic evaluation and workup, plan therapeutic interventions and future disposition of care. This includes any additional research needed to obtain further information in formulating the plan of care of this patient. This note was generated with a voice recognition program. Please excuse any errors which may have been overlooked during my review of this note. Sometimes these errors may affect the content or meaning of a given sentence.
[2021-10-27 12:09] LABS: Hematocrit 36.6 % (37.0-47.0); Hemoglobin 12.5 g/dl (12.0-16.0); Mean Corpuscular HGB Conc 34.2 g/dl (31.0-35.0); Mean Corpuscular Hemoglobin 31.1 pg (27.0-33.0); Mean Platelet Volume 10.7 fL (9.4-12.3); Platelet Count 196 X10*3/uL (160-400); Red Blood Count 4.02 X10*6/uL (4.20-5.50); Red Cell Distribution Width 12.8 % (11.0-16.0); White Blood Count 4.2 X10*3/uL (4.8-10.8)
[2021-10-27 12:30] LABS: Alanine Aminotransferase 15 U/L (0-31); Aspartate Amino Transferase 15 U/L (5-31); Blood Urea Nitrogen 9 mg/dL (9-16); Estimated Glomerular Filt Rate > 60; Uric Acid 2.5 mg/dL (2.4-5.7)
[2021-10-27 12:42] LABS: Creatinine Urine 103.42 mg/dL; Total Protein Urine Random < 7 mg/dL (<12)
[2021-10-27 12:57] LABS: Syphilis Screen Nonreactive (Nonreactive)
[2021-10-27 14:26] LABS: Amphetamine Screen Urine Not Detected (Not Detect); Barbiturates, Urine Not Detected (Not Detect); Benzodiazepines Screen Urine Not Detected (Not Detect); Cannabinoid Screen Urine POSITIVE (Not Detect); Cocaine Screen Urine Not Detected (Not Detect); Fentanyl, urine Not Detected (Not Detect); Opiate Screen Urine Not Detected (Not Detect); Phencyclidine Screen Urine Not Detected (Not Detect)
[2021-10-30 04:12] LABS: ~HepC Num1 0.07 S/CO (0.00-0.79); ~Hepatitis C Antibody Nonreactive (Nonreactive)
[2021-10-30 04:23] LABS: HBsAGNum1 0.15 S/CO (0.00-0.99); HIV AB/AG Nonreactive (Nonreactive); HIV Num 1 0.07 S/CO (0.00-0.99); Hepatitis B Surface Antigen Negative (Negative)
[2021-10-31 04:46] LABS: Rubella IgG Antibody 1.85 Index; Varicella IgG Antibody <135.00 index
== END 2021-10-27 09:37 | disposition home or self-care (01) ==
LOC: HO.US 09:36
PROVIDERS: PCP Internal Medicine; Visit Provider Obstetrics & Gynecology
DX: O21.9 Vomiting of pregnancy, unspecified (principal); O26.891 Other specified pregnancy related conditions, first trimester; E28.2 Polycystic ovarian syndrome; Z3A.12 12 weeks gestation of pregnancy
CPT/HCPCS: 76811; 76813; 80307; 82565; 84156; 84450; 84460; 84520; 84550; 85027; 86762; 86780; 86787; 86803; 86850; 86900; 86901; 87086; 87340; 87389

== ENCOUNTER → 2021-10-30 11:41 | Outpatient (BNVA) | payer MEDICAID, SELFPAY | PROVIDERS: Visit Provider Obstetrics & Gynecology | DX: Z13.89 Encounter for screening for other disorder (principal) ==

== ENCOUNTER 2021-12-11 11:07 | Outpatient (REF) | payer MEDICAID, SELFPAY ==
[2021-12-11 16:20] LABS: CT PCR NOT DETECTED (Not Detect.); NG PCR NOT DETECTED (Not Detect.)
== END 2021-12-11 11:08 | disposition home or self-care (01) ==
LOC: HO.LAB 11:07
PROVIDERS: PCP Internal Medicine; Visit Provider Obstetrics & Gynecology
DX: Z34.92 Encounter for supervision of normal pregnancy, unspecified, second trimester (principal); Z3A.18 18 weeks gestation of pregnancy
CPT/HCPCS: 87491; 87591; 88142; 99212

== ENCOUNTER 2021-12-22 13:03 | Outpatient (REF) | payer MEDICAID, SELFPAY ==
--- NOTE | ~2021-12-22 | US_ITS ---
EXAMINATION: US OBSTETRICAL CLINICAL INFORMATION: 21-year-old at 19.6 weeks of gestation Suspected anomaly COMPARISON: 10/27/2021 TECHNIQUE: Real-time transabdominal ultrasound was performed using C1-5 megahertz transducer. FINDINGS: A single, active, fetus is seen in breech presentation. The placenta is posterior without previa, and the amniotic fluid volume is wnl. MEASUREMENTS: 1. Biparietal Diameter: 4.6 cm; 19.6 wks 2. Occipital Frontal Diameter: 6.3 cm 3. Head Circumference: 17.4 cm; 20.0 wks 4. Abdominal Circumference: 15.5 cm; 20.5 wks 5. Femur Length: 3.2 cm; 19.6 wks 6. Humerus Length: 3.2 cm; 20.5 wks 7. Tibia Length: 2.8 cm; 20.1 wks 8. Ulna Length: 2.9 cm; 20.6 wks 9. Lateral ventricle: 0.54 cm 10. Cerebellum: 2.0 cm; 20.1 wks 11. Cisterna Magna: 0.4 cm 12. Nuchal Fold: 3.2 mm 13. Heart Rate: 155 beats per minute Rt ovary: normal Lt ovary: Unable to visualize Cervical length 4.8 cm on T/A. GESTATIONAL AGE: 1. Established GA: 19.6 wks 2. GA from [facility]: 20.1 wks ESTIMATED DATE OF DELIVERY: 1. Established [facility]: 05/12/2022 2. [facility] from [facility]: 05/10/2022 ANATOMY: The visualized anatomy includes but not limited to: 1. Cranium: Normal 2. Intracranial anatomy: cavum septum pellucidi, lateral ventricles, choroid plexus, cerebellum, posterior fossa, third and fourth ventricles. 3. face: orbits, lip/palate, profile, nasal bone 4. Heart: four-chamber view of the heart, ventricular septum, foramen ovale, pulmonary vein, left and right outflow tracts, three-vessel view, 3 vessel trachea view, aortic and ductal arches, situs.. 5. Diaphragm: Normal 6. Abdominal wall: Normal 7. Cord Insertion: Normal 8. Spine: Cervical, thoracic, lumbar, sacral. 9. Stomach: Normal size and shape 10. Right Kidney: Normal 11. Left Kidney: Normal 12. 3 vessel cord: Normal 13. Upper extremity: Open hands, fifth digit. 14. Lower extremity: Tibia, fibula, bilateral feet. 15. Bladder: Normal 16. Genitalia: Female, patient aware US/US OB /maternal detail IMPRESSION: 1. Single, living, intrauterine with appropriate biometry. 2. Normal survey DISCUSSION: I reviewed today's ultrasound findings. We discussed the limitations of ultrasound in diagnosing aneuploidy and other congenital abnormalities. I reviewed the differences between screening test and diagnostic test. Amniocentesis was discussed and declined. She was informed that the baseline incidence of congenital abnormalities is approximately 3-5%. Not all these conditions are diagnosable in utero. RECOMMENDATIONS: 1. Follow-up when necessary Thank you for allowing me to participate in her care. Total time 20 minutes. The time spent was devoted to counseling the patient about the disease and diagnosis, coordinating care including reviewing her records, pertinent lab data and studies, as well as discussing diagnostic evaluation and workup, plan therapeutic interventions and future disposition of care. This includes any additional research needed to obtain further information in formulating the plan of care of this patient. This note was generated with a voice recognition program. Please excuse any errors which may have been overlooked during my review of this note. Sometimes these errors may affect the content or meaning of a given sentence.
== END 2021-12-22 13:04 | disposition home or self-care (01) ==
LOC: HO.US 13:03
PROVIDERS: Visit Provider Obstetrics & Gynecology
DX: O35.9XX0 Maternal care for (suspected) fetal abnormality and damage, unspecified, not applicable or unspecified (principal); Z3A.19 19 weeks gestation of pregnancy
CPT/HCPCS: 76811

== ENCOUNTER → 2022-01-08 10:48 | Outpatient (BNVA) | payer MEDICAID, SELFPAY | PROVIDERS: PCP Internal Medicine; Visit Provider Advanced Practice Midwife | DX: O09.292 Supervision of pregnancy with other poor reproductive or obstetric history, second trimester (principal); O99.322 Drug use complicating pregnancy, second trimester; F12.90 Cannabis use, unspecified, uncomplicated; O98.812 Other maternal infectious and parasitic diseases complicating pregnancy, second trimester; A74.9 Chlamydial infection, unspecified; Z3A.22 22 weeks gestation of pregnancy | CPT/HCPCS: 99212 ==

== ENCOUNTER 2022-01-12 10:49 | Outpatient (REF) | payer MEDICAID, SELFPAY ==
--- NOTE | ~2022-01-12 | US_ITS ---
EXAMINATION: OBSTETRICAL ULTRASOUND, Follow up HISTORY: 21-year-old at the 22.6 weeks of gestation History of IUFD at 19 weeks COMPARISON: 12/22/2021 TECHNIQUE: Real time transabdominal imaging with color and M-mode Doppler. PRESENTATION: Vertex PLACENTA LOCATION: Posterior without previa AMNIOTIC FLUID: Normal MEASUREMENTS: 1. Biparietal Diameter: 5.7 cm; 23.3 wks 2. Head Circumference: 21.5 cm; 23.5 wks 3. Abdominal Circumference: 18.5 cm; 23.2 wks 4. Femur Length: 4.0 cm; 23.0 wks 5. Heart Rate: 146 beats per minute WEIGHT: EFW: 573 grams (1 lbs 4 oz) -- 61 %. GESTATIONAL AGE: 1. Established GA: 22.6 wks 2. GA from [facility]: 23.3 wks ESTIMATED DATE OF DELIVERY: 1. Established [facility]: 05/12/2022 2. [facility] from [facility]: 05/08/2022 US/US OB follow up IMPRESSION: 1. A single active fetus 2. Size equals dates 3. Normal amniotic fluid volume She had a demise at 19 weeks in her last . No etiology was identified. I reassured her that the prognosis for this excellent. Intermittent ultrasound is suggested. (Not scheduled). Thank you very much for this referral. This note was generated with a voice recognition program. Please excuse any errors which may have been overlooked during my review of this note. Sometimes these errors may affect the content or meaning of a given sentence.
== END 2022-01-12 10:50 | disposition home or self-care (01) ==
LOC: HO.US 10:49
PROVIDERS: Visit Provider Obstetrics & Gynecology
DX: Z34.92 Encounter for supervision of normal pregnancy, unspecified, second trimester (principal); Z87.59 Personal history of other complications of pregnancy, childbirth and the puerperium; Z3A.22 22 weeks gestation of pregnancy
CPT/HCPCS: 76816

== ENCOUNTER 2022-02-05 09:26 | Outpatient (REF) | payer MEDICAID, SELFPAY ==
[2022-02-05 11:29] LABS: Hematocrit 34.4 % (37.0-47.0); Mean Corpuscular HGB Conc 34.9 g/dl (31.0-35.0); Mean Corpuscular Hemoglobin 32.5 pg (27.0-33.0); Mean Corpuscular Volume 93.2 fL (80.0-98.0); Platelet Count 169 X10*3/uL (160-400); Red Blood Count 3.69 X10*6/uL (4.20-5.50); Red Cell Distribution Width 12.7 % (11.0-16.0); White Blood Count 4.2 X10*3/uL (4.8-10.8)
[2022-02-05 12:10] LABS: Glucose 1 Hour PP 50gm Dose 107 mg/dL (60-140)
[2022-02-05 12:32] LABS: Syphilis Screen Nonreactive (Nonreactive)
== END 2022-02-05 09:27 | disposition home or self-care (01) ==
LOC: HO.LAB 09:26
PROVIDERS: PCP Internal Medicine; Visit Provider Obstetrics & Gynecology
DX: Z34.92 Encounter for supervision of normal pregnancy, unspecified, second trimester (principal); Z3A.26 26 weeks gestation of pregnancy
CPT/HCPCS: 36415; 85027; 86780; 99212

== ENCOUNTER → 2022-02-20 09:51 | Outpatient (BNVA) | payer MEDICAID, SELFPAY | PROVIDERS: PCP Internal Medicine; Visit Provider Advanced Practice Midwife | DX: Z23 Encounter for immunization (principal); O36.5930 Maternal care for other known or suspected poor fetal growth, third trimester, not applicable or unspecified; Z3A.28 28 weeks gestation of pregnancy | CPT/HCPCS: 90471; 90715; 99212 ==

== ENCOUNTER → 2022-03-07 11:24 | Outpatient (BNVA) | payer MEDICAID, SELFPAY | PROVIDERS: PCP Internal Medicine; Visit Provider Advanced Practice Midwife | DX: O09.293 Supervision of pregnancy with other poor reproductive or obstetric history, third trimester (principal); O99.323 Drug use complicating pregnancy, third trimester; F12.90 Cannabis use, unspecified, uncomplicated; O21.9 Vomiting of pregnancy, unspecified; O98.813 Other maternal infectious and parasitic diseases complicating pregnancy, third trimester; Z3A.30 30 weeks gestation of pregnancy | CPT/HCPCS: 99212 ==

== ENCOUNTER → 2022-03-21 11:31 | Outpatient (BNVA) | payer MEDICAID, SELFPAY | PROVIDERS: PCP Internal Medicine; Visit Provider Advanced Practice Midwife | DX: O09.293 Supervision of pregnancy with other poor reproductive or obstetric history, third trimester (principal); O21.2 Late vomiting of pregnancy; O99.323 Drug use complicating pregnancy, third trimester; F12.90 Cannabis use, unspecified, uncomplicated; O98.813 Other maternal infectious and parasitic diseases complicating pregnancy, third trimester; Z3A.32 32 weeks gestation of pregnancy | CPT/HCPCS: 81003; 99212 ==